=== PATIENT | female | born 1945 | race Caucasian/White ===

== ENCOUNTER 2016-04-10 21:10 | Inpatient (IN) | payer MEDICARE, MEDICAID ==
[~2016-04-10] VITALS: Ht 167.6 cm; Wt 57.6 kg
[~2016-04-10 21:10] MED LIST: *MAYHAVE; /ADVA50050; /ALEN70TA; /PANT40TA; /QUIN20TA; ACET500C; ASPEC81 PO; ASPI325T; ASPIRIN; ATROVENT0.02%; COLA100C2; FERROUS325 PO; GEMF600T; GLUC10TA3; GLUC500T; IBUP800T; K-TA10TA; LACT10SO8; LASI40TA; LASI80TA; LEVA750T; LEVO25TABR; LEVO2TA; NICO21DI4; OSELTAMIVIR; PLAV75TA2; PRED10TA2; PRED20TA; PRED50TA; PROV90AE; SYNT50TA; SYNTHRO175 PO; SYNTHROID PO; TAMIFLU; THERGRAN; WELL75TA; XOPE1.252; ZOCO20TA
[2016-04-10] MEDS ORDERED: ALBUTEROL SULFATE 2.5 MG/0.5 ML INH NEB SOLN As Ordered ONE (21:56)
[2016-04-10] MEDS ORDERED: IPRATROPIUM 0.5MG/ALBUTEROL 2.5MG INH SOL UD 3ML (DUONEB)(J7620) As Ordered ONE (21:56)
[2016-04-10 22:01] LABS: BASO # 0.1 K/mm3 (0.0-0.2); BASO % 1.3 % (0.0-1.0); EOS % 0.2 % (0.0-3.0); LARGE UNSTAINED CELL # 0.2 K/mm3 (0.0-0.4); LARGE UNSTAINED CELL % 3.3 % (0.0-4.0); LYMPH # 1.7 K/mm3 (1.5-4.5); LYMPH % 28.5 % (24.0-44.0); MEAN CORPUSCULAR HEMOGLOBIN 29.1 pg (27.0-33.0); MEAN CORPUSCULAR HGB CONC 32.8 g/dl (32.0-36.5); MEAN CORPUSCULAR VOLUME 88.6 fl (80.0-96.0); MONO # 0.4 K/mm3 (0.0-0.8); MONO % 7.7 % (0.0-5.0); NEUTROPHILS # 3.2 K/mm3 (1.8-7.7); PLATELET COUNT, AUTOMATED 191 k/mm3 (150-450); RED CELL DISTRIBUTION WIDTH 13.6 % (11.5-14.5); WHITE BLOOD COUNT 5.3 K/mm3 (4.0-10.0)
[2016-04-10 22:10] LABS: CALCIUM LEVEL 8.6 MG/DL (8.8-10.2); CREATININE FOR GFR 1.44 MG/DL (0.55-1.02)
[2016-04-10] MEDS ORDERED: CEFUROXIME INJ 750 MG VIAL (J0697) As Ordered ONE (22:55)
[2016-04-10] MEDS ORDERED: AZITHROMYCIN INJ 500MG VIAL (J0456) As Ordered ONE (23:23)
--- NOTE | 2016-04-11 00:14 | HPEPDOC ---
General Date of Admission 04/11/2016 Chief Complaint The patient is a 71-year-old female admitted with a reason for visit of Fever, Diff Breathing. Source: Patient, Old records Exam Limitations: No limitations Severity: Moderate History of Present Illness 68-year-old female with past medical history of obesity, diabetes, heart failure , COPD, hypothyroidism, multiple lung nodules, osteoarthritis, osteopenia, depression, anxiety, dementia, vitamin D and B12 deficiency presented with SOB with productive cough for 3 days duration. Patient was also having subjective chills as well as progressively getting worse with productive cough with yellow sputum. No blood in the sputum. Patient did have a cold like symptoms with sore throat, joint pain, as well as runny nose. No sick contacts and no recent travel. No fever until arriving to the ED where she was found to have a temperature of 104 patient also desaturated at 91 % on room air and on 2 L oxygen is atenolol. Patient's cough has increased after DuoNeb therapy however breathing is improved. denies Chest pain or palpitation. her lactate is elevated but does not meet SIRS criteria. Home Medications Scheduled Alendronate Sodium (Fosamax) 70 Mg Tab 70 MG PO 1XWK (Reported) Aspirin (Aspirin EC) 81 Mg Tab 81 MG PO DAILY (Reported) Cholecalciferol (Vitamin D) 400 Unit Cap 400 UNIT PO DAILY (Reported) Citalopram Hydrobromide (Citalopram Hydrobromide) 20 Mg Tab 20 MG PO QHS ( Reported) Clopidogrel Bisulfate (Plavix) 75 Mg Tab 75 MG PO DAILY (Reported) Cyanocobalamin (Vitamin B-12) 1,000 Mcg Tab 1,000 MCG PO DAILY (Reported) Docusate Sodium (Colace) 100 Mg Cap 100 MG PO BID (Reported) Donepezil Hcl (Donepezil HCl) 10 Mg Tab 10 MG PO QHS (Reported) Furosemide (Furosemide) 40 Mg Tab 40 MG PO DAILY (Reported) Levothyroxine Sodium (Synthroid) 175 Mcg Tab 175 MCG PO QAM (Reported) Loratadine (Loratadine) 10 Mg Tab 10 MG PO DAILY (Reported) Memantine Hydrochloride (Namenda Xr) 28 Mg Cap 28 MG PO DAILY (Reported) Metformin Hydrochloride (Metformin HCl) 500 Mg Tab 500 MG PO DAILY (Reported) With Breakfast Multivitamins *[facility]OCK[facility]* (Thera M Plus *[facility]OCK[facility]*) 1 Tab Tab 1 TAB PO DAILY (Reported) Quinapril Hcl (Quinapril HCl) 20 Mg Tab 20 MG PO DAILY (Reported) Simvastatin - High Dose (Simvastatin) 80 Mg Tab 80 MG PO QHS (Reported) Scheduled PRN Ipratropium [place] (Atrovent Hfa) 17 Mcg/Act Aer 17 MCG INH Q6H PRN PRN SOB/ WHEEZING (Reported) Allergies Coded Allergies: No Known Allergies (Verified Allergy, Unknown, 02/12/08) Past Medical History Medical History obesity, diabetes, heart failure, COPD, hypothyroidism, multiple lung nodules, osteoarthritis, osteopenia, depression, anxiety, dementia, vitamin D and B12 deficiency resume Surgical History hernia repair hysterectomy Social History * Smoker: former Smoker Alcohol: denies Drugs: denies Recent Travel/Sick Contacts: Denies: Recent sick contacts, Recent travel Psychosocial History: No pertinent psych hx Review of Symptoms Constitutional: Reports: Chills, Fatigue, Fever, Malaise, Weakness, Denies: Lethargy, Night Sweats, Other, Weight Loss Eyes: Denies: Conjunctivae inflammation, Eyelid inflammation, Other, Pain, Redness, Vision change ENT: Denies: Dysphagia, Ear Pain, Epistaxis, Head Aches, Other Symptoms, Post Nasal Drip, Sinus Congestion, Sore Throat Skin: Denies: Breakdown, Bruising, Dry, Itching, Jaundice, Lesions, Nail Changes, Other, Rash Pulmonary: Reports: Cough, Dyspnea Cardiovascular: Denies: Chest Pain, Edema, Lt Headedness, Orthopnea, Other Symptoms, Palpitations, Paroxysmal Noc. Dyspnea Gastrointestinal: Denies: Abdominal Pain, Constipation, Diarrhea, Hematochezia , Melena, Nausea, Other Symptoms, Vomiting Genitourinary: Denies: Dysuria, Frequency, Hematuria, Incontinence, Other Symptoms, Retention Endocrine: Denies: Cold Intolerance, Heat Intolerance, Other Endocrine Sx, Polydipsia, Polyphagia, Polyuria Physical Examination Eye Exam: Negative: Conjunctiva & lids normal, EOMI, Other Eye Symptoms, PERRLA , Ptosis, Sclera icteric ENT Exam: Negative: Atraumatic, Ext Auditory Canal Nml, Mucous membr. moist/ pink, Nares Patent, Other ENT, Pharyngeal Edema, Pharynx Normal, Pinna Normal, Tongue Midline, Tympanic Membranes Normal Neck Exam: Negative: +2 carotid pulse wo bruit, JVD, Lymphadenopathy, Other, Supple, thyromegaly Chest Exam: Positive: Rhonchi, Wheezing Heart Exam: Negative: Bradycardic, Gallops, Irregular Rhythm, Murmurs, Normal S1, Normal S2, Other, Rate Normal, Regular Rhythm, Rubs, Tachycardic Telemetry: Negative: AV Block, Asystole, Atrial fibrillation, Bradycardia, No significant arrhythmia, Other Telemetry:, PACs, PVCs, Pause, SV Tach, Sinus, Tachycardia Abdomen Exam: Negative: BS Hyperactive, BS Hypoactive, Hepatospenomegaly, Hernia, Mass, Normal bowel sounds, Other, Soft, Tenderness Extremity Exam: Negative: Clubbing, Cyanosis, Edema, Normal pulses, Other, Swelling, Tenderness Vital Signs BP: 196/75 p 108 t 98.1 r 16 Laboratory Data Labs 24H Laboratory Tests 2 04/10/16 21:12: Anion Gap 9, White Blood Count 5.3, Red Blood Count 4.08, Hemoglobin 11.9L, Hematocrit 36.1, Mean Corpuscular Volume 88.6, Mean Corpuscular Hemoglobin 29.1 , Mean Corpuscular Hemoglobin Concent 32.8, Red Cell Distribution Width 13.6, Platelet Count 191, Neutrophils (%) (Auto) 59.0, Lymphocytes (%) (Auto) 28.5, Monocytes (%) (Auto) 7.7H, Eosinophils (%) (Auto) 0.2, Basophils (%) (Auto) 1.3H , Neutrophils # (Auto) 3.2, Lymphocytes # (Auto) 1.7, Monocytes # (Auto) 0.4, Eosinophils # (Auto) 0.0, Basophils # (Auto) 0.1, Blood Urea Nitrogen 33H, Creatinine 1.44H, Sodium Level 138, Potassium Level 4.0, Chloride Level 105, Carbon Dioxide Level 24, Calcium Level 8.6L, Glomerular Filtration Rate 38.0L, Lactic Acid Level 3.5*H, Large Unclassified Cells # 0.2, Large Unclassified Cells % 3.3 CBC/BMP Laboratory Tests 04/10/16 21:12 Calcium Level 8.6 L, Red Blood Count 4.08, Mean Corpuscular Volume 88.6, Mean Corpuscular Hemoglobin 29.1, Mean Corpuscular Hemoglobin Concent 32.8, Red Cell Distribution Width 13.6, Neutrophils (%) (Auto) 59.0, Lymphocytes (%) (Auto) 28.5, Monocytes (%) (Auto) 7.7 H, Eosinophils (%) (Auto) 0.2, Basophils (%) ( Auto) 1.3 H, Neutrophils # (Auto) 3.2, Lymphocytes # (Auto) 1.7, Monocytes # ( Auto) 0.4, Eosinophils # (Auto) 0.0, Basophils # (Auto) 0.1 Microbiology Microbiology 04/10/16 Blood Culture, Received Pending 04/10/16 Blood Culture, Received Pending 04/10/16 Influenza Virus Type A Antigen - Final, Complete 04/10/16 Influenza Virus Type B Antigen - Final, Complete Plan / VTE VTE Prophylaxis Ordered?: Yes Plan Plan 68-year-old female with past medical history of obesity, diabetes, heart failure , COPD, hypothyroidism, multiple lung nodules, osteoarthritis, osteopenia, depression, anxiety, dementia, vitamin D and B12 deficiency presented with SOB with productive cough for 3 days duration. community acquired PNA and COPD exacerbation: - pt will be started on rocephin, azithomycin and DUONEB Q6H - blood culture, sputum culture, legionella antigen - No need for steroids Oxygen to keep surgeries and 100% Check lactic tomorrow morning Monitor CBC and CMP. Congestive heart failure Echo July 2007 shows EF of 65%. X-ray also shows pulmonary was congestion, Lasix will be switched to IV 40 daily. Recheck echo tomorrow Continue with quinipril 20 mg once a day. Consider beta emma upon discharge. Diabetes hoold Metformin for now Check A1c tomorrow, if blood sugars and A1c uncontrolled started her on insulin sliding scale. Due to prophylaxis on heparin subcutaneous. FROYLAN SERNA MD Apr 11, 2016 00:14
[2016-04-11] MEDS ORDERED: LORA10TA2 PO (00:27)
[2016-04-11] MEDS ORDERED: FURO40TA2 PO (00:27)
[2016-04-11] MEDS ORDERED: NAME28CA PO (00:27)
[2016-04-11] MEDS ORDERED: SYNT175T2 PO (00:27)
[2016-04-11] MEDS ORDERED: ATRO0.063 INH (00:27)
[2016-04-11] MEDS ORDERED: SIMV80TA PO (00:27)
[2016-04-11] MEDS ORDERED: METF500T PO (00:27)
[2016-04-11] MEDS ORDERED: VITMTA PO (00:27)
[2016-04-11] MEDS ORDERED: VITA400C29 PO (00:27)
[2016-04-11] MEDS ORDERED: COLA100C PO (00:27)
[2016-04-11] MEDS ORDERED: FOSA70TA PO (00:27)
[2016-04-11] MEDS ORDERED: DONETAB6 PO (00:27)
[2016-04-11] MEDS ORDERED: QUIN20TA7 PO (00:27)
[2016-04-11] MEDS ORDERED: PLAV75TA PO (00:27)
[2016-04-11] MEDS ORDERED: CITA20TA4 PO (00:27)
[2016-04-11] MEDS ORDERED: ASPI81TA13 PO (00:27)
[2016-04-11] MEDS ORDERED: VITA10002 PO (00:27)
[2016-04-11] MEDS ORDERED: cefTRIAXone SOD 1 GM in D5W MINI-BAG PLUS 50 ML IV SCH (01:00)
[2016-04-11] MEDS ORDERED: LEVALBUTEROL 1.25 MG/0.5 ML CONCENTRATE NEB As Ordered ONE (01:01)
[2016-04-11] MEDS ORDERED: dexameTHASONE 4 MG/ML 1ML VIAL (J1100) As Ordered ONE (01:02)
[2016-04-11] MEDS ORDERED: cefTRIAXone SOD 1 GM VIAL (J0696) IM SCH (01:30)
[2016-04-11] MEDS ORDERED: ACETAMINOPHEN TAB 650MG DOSE (2X325MG) PO PRN (01:30)
[2016-04-11] MEDS ORDERED: IPRATROPIUM HFA INHALER 12.9 GRAMS (ATROVENT HFA) INH PRN (02:30)
--- NOTE | 2016-04-11 02:43 | EDDOCDS ---
Nurse's Notes [facility] Name: Patricia Sofia Age: 71 yrs Sex: Female : 1945 Arrival Date: 04/10/2016 Time: 21:10 Bed 5 Private MD: Cristian Man A. Diagnosis: Pneumonia, unspecified organism Presentation: 04/10 21:14 Presenting complaint: caregiver reports that patient has started with symptoms on jmb late afternoon with chills evening. Call placed to pcp, informed to allow to go for believing to be a bug. Breathing difficulty started yesterday afternoon with today getting worse. Adult Sepsis Screening: Patient's respiratory rate is less than 22. Systolic blood pressure is greater than 100. Patient has a qSOFA score of 0- Negative Sepsis Screen. Suicide/Homicide risk assessment- the patient denies having any suicidal and/or homicidal ideations and does not present with any other emotional, behavioral or mental health complaints. Status: Patient is not a radiology equipment servicer or dependent. Transition of care: patient was sent by via [facility]. 21:14 Acuity: SARY Level 3 [facility] 21:14 Method Of Arrival: Wheelchair [facility] Triage Assessment: 21:23 General: Appears uncomfortable, Behavior is appropriate for age. Pain: Denies pain. [facility] Neurological: Level of Consciousness is awake, alert, obeys commands. Respiratory: Onset: The symptoms/episode began/occurred gradually, Airway is patent Respiratory effort is labored, Respiratory pattern is regular. Derm: Skin is pink, warm & dry. Musculoskeletal: Range of motion intact in all extremities. Historical: - Allergies: No known drug Allergies; - Home Meds: 1. levothyroxine 175 mcg Oral tab 1 tab once daily 2. Vitamin B-12 1,000 mcg Oral tab daily 3. multivitamin Oral tab 4. Plavix 75 mg Oral tab 1 tab once daily 5. quinapril 20 mg Oral tab 1 tab once daily 6. Vitamin D3 400 unit oral tab 7. aspirin 81 mg Oral TbEC 1 tab once daily 8. furosemide 40 mg Oral tab 1 tab once daily 9. metformin 500 mg Oral Tb24 1 tab once daily 10. docusate sodium 100 mg Oral cap 1 cap 2 times per day 11. loratadine 10 mg Oral TbDL 1 tab once daily 12. simvastatin 80 mg Oral tab daily 13. Aricept 10 mg Oral tab 1 tab once daily 14. citalopram 20 mg Oral tab 1 tab once daily 15. Fosamax 70 mg Oral tab 1 tab once wkly 16. Atrovent 18 mcg/actuation Inhl aero as needed - PMHx: Diabetes - NIDDM: controlled; CHF; COPD; Hypothyroidism; multiple lung nodules; hx monoclonal gammopathy; OA; osteopenia; Depression; Anxiety; colonic polyps; copnstipation; degenerative dementia; vitamin d deficiency; vitamin b 12 deficiency; - PSHx: hernia repair; Hysterectomy; - Social history: Smoking status: Patient states former smoker of tobacco. No barriers to communication noted, The patient speaks fluent Latvian, Speaks appropriately for age. - Family history: Not pertinent. - : The pt / caregiver states he / she is not on anticoagulants. Home medication list is obtained from the facility JUN. - Exposure Risk Screening:: None identified. Screenin/01 01:50 Screening information is obtained from the patient. Fall risk: No risks identified. af2 Assistance ADL's: requires no assistance with activities of daily living. Abuse/DV Screen: The patient / caregiver reports he/she is: not in a situation that causes fear, pain or injury. Nutritional screening: No deficits noted. Advance Directives: Currently, there is no health care proxy. home support is adequate. Assessment: 04/10 21:32 General: Appears in no apparent distress, Behavior is appropriate for age, cooperative. kas2 Pain: Denies pain. Neurological: Level of Consciousness is awake, alert, obeys commands, Speech is normal, Facial symmetry appears normal. Cardiovascular: Capillary refill < 3 seconds Heart tones S1 S2 present Rhythm is sinus rhythm No ectopy. Respiratory: Airway is patent Respiratory effort is even, labored, Breath sounds with wheezes expiratory bilaterally. Reports shortness of breath cough that is productive, clear mucus production labored breathing. Derm: Skin is pink, warm & dry. 21:58 Reassessment: Patient appears in no apparent distress at this time. Cardiovascular: nn1 Edema is absent. Pulses are all present. Rhythm is sinus rhythm. Derm: Skin is pink, warm & dry. 23:04 General: Appears in no apparent distress, comfortable, Behavior is appropriate for age, nn1 cooperative. Respiratory: Airway is patent Respiratory effort is even. Derm: Skin is pink, warm & dry. 04/11 00:09 General: Appears in no apparent distress, comfortable, Behavior is appropriate for age, nn1 cooperative, Patient not coughing at this time, comfortable. Transferring care of patient to FILIPPO Hunt, . 00:37 General: assumed care of pt at this time. pt is without complaints.. Cardiovascular: af2 Rhythm is sinus rhythm No ectopy. Respiratory: Airway is patent Respiratory effort is even, labored, Breath sounds with crackles expiratory bilaterally. Breath sounds with wheezes expiratory bilaterally. Reports shortness of breath cough that is labored breathing. Derm: Skin is pink, warm & dry. 01:11 General: Admit nurse at bedside with pt, family remains at bedside. rr even and af2 unlabored. . Vital Signs: 04/10 21:11 BP 196 / 75; Pulse 108; Resp 16 S; Temp 98.9(O); Pulse Ox 91% on R/A; Weight 80.74 kg gr2 (R); Height 5 ft. 6 in. (167.64 cm) (R); Pain 4/10; 21:21 BP 154 / 63 (auto/); nn1 21:21 Pulse 100 MON; Pulse Ox 89% ; nn1 21:33 Pulse 82 MON; Pulse Ox 94% ; nn1 21:34 BP 144 / 60 (auto/); nn1 21:36 BP 128 / 60 (auto/); nn1 21:36 Pulse 84 MON; Pulse Ox 94% ; nn1 21:51 BP 129 / 66 (auto/); nn1 21:51 Pulse 80 MON; Pulse Ox 95% ; nn1 22:06 BP 121 / 58 (auto/); nn1 22:06 Pulse 88 MON; Pulse Ox 96% ; nn1 22:21 BP 124 / 59 (auto/); nn1 22:21 Pulse 96 MON; Pulse Ox 93% ; nn1 22:36 BP 128 / 57 (auto/); nn1 22:36 Pulse 84 MON; Pulse Ox 93% ; nn1 04/11 02:41 BP 110 / 56; ka4 04/10 21:11 Body Mass Index 28.73 (80.74 kg, 167.64 cm) gr2 Vitals: 04/10 21:11 Log In Time: April 10, 2016 at 21:11. RN notified that patient meets Red Flag gr2 criteria. ED Course: 21:10 Patient visited by Lawanda Yousif. gr2 21:10 Patient moved to Waiting gr2 21:11 Cristian Man is Private Physician. gr2 21:16 Triage Initiated jmb 21:23 Patient visited by Lawanda Yousif. gr2 21:23 Patient moved to 5 sls1 21:24 Ирина Rojas DO is PHCP. bs6 21:24 Thong Valerio DO is Attending Physician. bs6 21:27 Patient visited by Ирина Rojas DO. bs6 21:28 Patient visited by Ирина Rojas DO. bs6 21:34 Inserted saline lock: 20 gauge in left antecubital area and blood collected. The kas2 patient tolerated the procedure well. O2 via nasal cannula \T\ 3L/min. 21:36 Patient visited by Margaret Washington PCA. rs6 21:36 EKG done. (by ED staff). Reviewed by Ирина Rojas DO. rs6 21:49 Lactic Acid (Retana tube on ice) Sent. ms18 21:49 -Blood Culture Sent. ms18 21:49 Basic Metabolic Profile Sent. ms18 21:49 CBC with Diff Sent. ms18 21:58 -Influenza A&B Rapid Antigen - Nose Sent. nn1 22:13 [facility] [place] Payment Agreement was scanned into [employer] and attached to record. gb 22:16 Notified attending ED physician of Critical lab value. sls1 22:17 Patient name changed from Patricia\S\\S\[place]\S\ to Patricia\S\M\S\[place]. EDMS 22:29 Patient visited by Stanley Brito RN. nn1 23:11 Patient visited by Stanley Brito RN. nn1 23:24 Terrell Valencia MD is Hospitalizing Provider. bs6 04/11 00:38 Patient visited by Marilee Payne RN. af2 01:12 Patient visited by Marilee Payne RN. af2 01:51 The patient / caregiver is instructed regarding the plan of care and ED course. Patient af2 has correct armband on for positive identification. Placed in gown. 01:51 No procedures done that require assistance. af2 01:53 Patient visited by Marilee Payne RN. af2 02:41 Patient visited by Shantel Sheehan LPN. ka4 Administered Medications: 04/10 22:00 Drug: Albuterol-Ipratropium 3 ml [ipratropium-albuterol 0.5 mg-3 mg(2.5 mg base)/3 mL jc3 nebulization soln (3 mL)] Route: Inhalation; 22:00 Drug: Albuterol 5 mg [albuterol sulfate 2.5 mg/0.5 mL solution for nebulization (1 mL)] jc3 Route: Nebulizer; 22:35 Drug: NS 0.9% 500 ml [sodium chloride 0.9 % intravenous solution] Route: IV; Rate: nn1 bolus; Site: left antecubital; 23:03 Drug: cefUROXime 1.5 grams [cefuroxime sodium 750 mg solution for injection] Route: IV; nn1 Rate: calculated rate; Infused Over: 30 mins; Site: left antecubital; 04/11 00:09 Drug: azithromycin 500 mg [azithromycin 500 mg intravenous solution] Route: IVPB; nn1 Infused Over: 1 hrs; Site: left antecubital; 01:03 Drug: Levalbuterol 1.25 mg [levalbuterol 1.25 mg/0.5 mL solution for nebulization (0.5 jc3 mL)] Route: Nebulizer; 01:07 Drug: Dexamethasone 6 mg [dexamethasone 4 mg/mL injection solution] Route: IV; Rate: af2 bolus; Site: left antecubital; RT: 04/10 22:00 Initial Med Neb Given as ordered. O2 via nasal cannula \T\ 3L/min. Respiratory: Breath jc3 sounds are diminished bilaterally. Breath sounds with wheezes in right upper lobe and right middle lobe at inspiration. 22:07 Respiratory: Breath sounds are diminished Breath sounds with wheezes bilaterally. jc3 04/11 01:03 Subsequent Med Neb Given as ordered. Respiratory: Breath sounds are diminished Breath jc3 sounds with wheezes bilaterally. at expiration. Order Results: Lab Order: Basic Metabolic Profile; SPEC'M 04/10/16 21:12 Test: GLUCOSE, FASTING; Value: 218; Range: 83-110; Abnormal: Above high normal; Units: MG/DL; Status: F Test: BLOOD UREA NITROGEN; Value: 33; Range: 7-18; Abnormal: Above high normal; Units: MG/DL; Status: F Test: CREATININE FOR GFR; Value: 1.44; Range: 0.55-1.02; Abnormal: Above high normal; Units: MG/DL; Status: F Test: GLOMERULAR FILTRATION RATE; Value: 38.0; Range: >39; Abnormal: Below low normal; Status: F Test: SODIUM LEVEL; Value: 138; Range: 136-145; Units: MEQ/L; Status: F Test: POTASSIUM SERUM; Value: 4.0; Range: 3.5-5.1; Units: MEQ/L; Status: F Test: CHLORIDE LEVEL; Value: 105; Range: 98-107; Units: MEQ/L; Status: F Test: CARBON DIOXIDE LEVEL; Value: 24; Range: 21-32; Units: MEQ/L; Status: F Test: ANION GAP; Value: 9; Range: 8-16; Units: MEQ/L; Status: F Test: CALCIUM LEVEL; Value: 8.6; Range: 8.8-10.2; Abnormal: Below low normal; Units: MG/DL; Status: F Test Note: ; Units are mL/min/1.73 m2 Chronic Kidney Disease Staging per NKF: Stage I & II GFR >=60 Normal to Mildly Decreased Stage III GFR 30-59 Moderately Decreased Stage IV GFR 15-29 Severely Decreased Stage V GFR <15 Very Little GFR Left ESRD GFR <15 on POLICE OFF[employer]ER CRIME PREVENTION Lab Order: CBC with Diff; SPEC'M 04/10/16 21:12 Test: WHITE BLOOD COUNT; Value: 5.3; Range: 4.0-10.0; Units: K/mm3; Status: F Test: RED BLOOD COUNT; Value: 4.08; Range: 4.00-5.40; Units: M/mm3; Status: F Test: HEMOGLOBIN; Value: 11.9; Range: 12.0-16.0; Abnormal: Below low normal; Units: g/dl; Status: F Test: HEMATOCRIT; Value: 36.1; Range: 36.0-47.0; Units: %; Status: F Test: MEAN CORPUSCULAR VOLUME; Value: 88.6; Range: 80.0-96.0; Units: fl; Status: F Test: MEAN CORPUSCULAR HEMOGLOBIN; Value: 29.1; Range: 27.0-33.0; Units: pg; Status: F Test: MEAN CORPUSCULAR HGB CONC; Value: 32.8; Range: 32.0-36.5; Units: g/dl; Status: F Test: RED CELL DISTRIBUTION WIDTH; Value: 13.6; Range: 11.5-14.5; Units: %; Status: F Test: PLATELET COUNT, AUTOMATED; Value: 191; Range: 150-450; Units: k/mm3; Status: F Test: NEUTROPHILS %; Value: 59.0; Range: 36.0-66.0; Units: %; Status: F Test: LYMPH %; Value: 28.5; Range: 24.0-44.0; Units: %; Status: F Test: MONO %; Value: 7.7; Range: 0.0-5.0; Abnormal: Above high normal; Units: %; Status: F Test: EOS %; Value: 0.2; Range: 0.0-3.0; Units: %; Status: F Test: BASO %; Value: 1.3; Range: 0.0-1.0; Abnormal: Above high normal; Units: %; Status: F Test: LARGE UNSTAINED CELL %; Value: 3.3; Range: 0.0-4.0; Units: %; Status: F Test: NEUTROPHILS #; Value: 3.2; Range: 1.8-7.7; Units: K/mm3; Status: F Test: LYMPH #; Value: 1.7; Range: 1.5-4.5; Units: K/mm3; Status: F Test: MONO #; Value: 0.4; Range: 0.0-0.8; Units: K/mm3; Status: F Test: EOS #; Value: 0.0; Range: 0.0-0.50; Units: K/mm3; Status: F Test: BASO #; Value: 0.1; Range: 0.0-0.2; Units: K/mm3; Status: F Test: LARGE UNSTAINED CELL #; Value: 0.2; Range: 0.0-0.4; Units: K/mm3; Status: F Lab Order: Lactic Acid (Retana tube on ice); SPEC'M 04/10/16 21:12 Test: LACTIC ACID LEVEL, LACTATE; Value: 3.5; Range: 0.4-2.0; Abnormal: Above upper panic limits; Units: MMOL/L; Status: F Lab Order: -Influenza A&B Rapid Antigen - Nose; SPEC'M 04/10/16 21:54 Test: INFLUENZA A RAPID SCR by ICA; Value: INFLUENZA A RESULTS NEGATIVE; Status: F Test: INFLUENZA A RAPID SCR by ICA; Value: Comments:; Status: F Test: INFLUENZA B RAPID SCR by ICA; Value: INFLUENZA B RESULTS NEGATIVE; Status: F Test Note: ; The Influenza test is a direct rapid immunoassay for the qualitative detection of Influenza viral antigen. Cell culture (Viral Culture) testing should be considered to confirm NEGATIVE results and to assist in detecting other viruses that can provide similar clinical symptoms. Please contact the lab within 24 hours ([phone]) if confirmatory testing is desired. Outcome: 04/10 23:26 Decision to Hospitalize by Provider. bs6 04/11 01:51 Discharge Assessment: patient administered narcotics - no. The following High Risk af2 Discharge criteria are identified: None. Admitted to Med/Surg accompanied by tech, via stretcher, with chart. Condition: stable. No special radiology studies were completed. Property :Personal belongings accompany Pt. 02:43 Patient left the ED. af2 Signatures: Dispatcher [employer] EDFL Erika Whitaker, Reg Reg Kvein Millan jc3 Linette Magaña, RN RN sls1 Lawanda Yousif gr2 Broderick NesbittRN RN Shantel Russo,INTERNIST INTERNIST ka4 Ирина Rojas, DO bs6 Arabella DavenportRN RN ms18 Margaret Washington, [employer] O[employer]ATIONS COORDINATOR rs6 Marilee PayneRN RN af2 Stanley BritoRN RN nn1 Tesha DavenportRN RN kas2 Corrections: (The following items were deleted from the chart) 04/10 22:07 22:00 O2 via nasal cannula \T\ 2L/min jc3 jc3 MTDD
--- NOTE | 2016-04-11 02:43 | EDDOCDS ---
Physician Documentation [facility] Name: Patricia Sofia Age: 71 yrs Sex: Female : 1945 Arrival Date: 04/10/2016 Time: 21:10 Bed 5 Private MD: Cristian Man A. Disposition: 04/10/16 23:26 Hospitalization ordered by Terrell Valencia for Inpatient Admission. Preliminary diagnosis is Pneumonia, unspecified organism. - Bed requested for 4 [place]. - Status is Inpatient Admission. af2 - Condition is Stable. - Problem is new. - Symptoms have improved. Historical: - Allergies: No known drug Allergies; - Home Meds: 1. levothyroxine 175 mcg Oral tab 1 tab once daily 2. Vitamin B-12 1,000 mcg Oral tab daily 3. multivitamin Oral tab 4. Plavix 75 mg Oral tab 1 tab once daily 5. quinapril 20 mg Oral tab 1 tab once daily 6. Vitamin D3 400 unit oral tab 7. aspirin 81 mg Oral TbEC 1 tab once daily 8. furosemide 40 mg Oral tab 1 tab once daily 9. metformin 500 mg Oral Tb24 1 tab once daily 10. docusate sodium 100 mg Oral cap 1 cap 2 times per day 11. loratadine 10 mg Oral TbDL 1 tab once daily 12. simvastatin 80 mg Oral tab daily 13. Aricept 10 mg Oral tab 1 tab once daily 14. citalopram 20 mg Oral tab 1 tab once daily 15. Fosamax 70 mg Oral tab 1 tab once wkly 16. Atrovent 18 mcg/actuation Inhl aero as needed - PMHx: Diabetes - NIDDM: controlled; CHF; COPD; Hypothyroidism; multiple lung nodules; hx monoclonal gammopathy; OA; osteopenia; Depression; Anxiety; colonic polyps; copnstipation; degenerative dementia; vitamin d deficiency; vitamin b 12 deficiency; - PSHx: hernia repair; Hysterectomy; - Social history: Smoking status: Patient states former smoker of tobacco. No barriers to communication noted, The patient speaks fluent Wolof, Speaks appropriately for age. - Family history: Not pertinent. - : The pt / caregiver states he / she is not on anticoagulants. Home medication list is obtained from the facility JUN. - Exposure Risk Screening:: None identified. Vital Signs: 04/10 21:11 BP 196 / 75; Pulse 108; Resp 16 S; Temp 98.9(O); Pulse Ox 91% on R/A; Weight 80.74 kg / gr2 178 lbs (R); Height 5 ft. 6 in. (167.64 cm) (R); Pain 4/10; 21:21 BP 154 / 63 (auto/); nn1 21:21 Pulse 100 MON; Pulse Ox 89% ; nn1 21:33 Pulse 82 MON; Pulse Ox 94% ; nn1 21:34 BP 144 / 60 (auto/); nn1 21:36 BP 128 / 60 (auto/); nn1 21:36 Pulse 84 MON; Pulse Ox 94% ; nn1 21:51 BP 129 / 66 (auto/); nn1 21:51 Pulse 80 MON; Pulse Ox 95% ; nn1 22:06 BP 121 / 58 (auto/); nn1 22:06 Pulse 88 MON; Pulse Ox 96% ; nn1 22:21 BP 124 / 59 (auto/); nn1 22:21 Pulse 96 MON; Pulse Ox 93% ; nn1 22:36 BP 128 / 57 (auto/); nn1 22:36 Pulse 84 MON; Pulse Ox 93% ; nn1 04/11 02:41 BP 110 / 56; ka4 04/10 21:11 Body Mass Index 28.73 (80.74 kg, 167.64 cm) gr2 MDM: 04/10 21:25 ECG WITH READING ER PHYS+CARDIAG ordered. EDMS 21:47 -Blood Culture (Adults Only), peripheral from different site, or from device/port/PICC bs6 etc. if present ordered. 21:47 Call Respiratory ordered. bs6 21:47 Field Service Rep/Pulse Ox/q 15 min VS ordered. bs6 21:47 IV Saline Lock ordered. bs6 21:47 Oxygen at 4L/Min NC or Home dosage ordered. bs6 21:47 Rhythm Strip to chart ordered. bs6 21:47 Albuterol-Ipratropium 3 ml Inhalation once ordered. bs6 21:47 Albuterol 5 mg Nebulizer once ordered. bs6 21:48 Basic Metabolic Profile Ordered. EDMS 21:48 CBC with Diff Ordered. EDMS 21:48 Lactic Acid (Retana tube on ice) Ordered. EDMS 21:48 -Blood Culture Ordered. EDMS 21:48 -Influenza A&B Rapid Antigen - Nose Ordered. EDMS 21:49 Call Respiratory complete. ms18 21:54 -Blood Culture (Adults Only), peripheral from different site, or from device/port/PICC tmm1 etc. if present complete. 21:55 BLOOD CULTURES Ordered. EDMS 22:11 Financial registration complete. gb 22:13 [facility] Payment Agreement was scanned into [employer] and attached to record. gb 22:17 Basic Metabolic Profile Reviewed. cs11 22:17 CBC with Diff Reviewed. cs11 22:18 NS 0.9% 500 ml IV at bolus once ordered. bs6 22:20 BED REQUEST+ADM ordered. EDMS 22:44 Chest, 1 view Ordered. EDMS 22:50 cefUROXime 1.5 grams IV at calculated rate once over 30 mins; dilute in 50mL of NS or cs11 D5W ordered. 22:50 azithromycin 500 mg IVPB once over 1 hrs; dilute in 250mL of D5W or NS ordered. cs11 23:50 LACTIC ACID LEVEL, LACTATE Ordered. EDMS 23:50 CBC WITH DIFFERENTIAL Ordered. EDMS 23:50 BASIC METABOLIC PROFILE Ordered. EDMS 23:51 LEGIONELLA ANTIGEN URINE Ordered. EDMS 23:51 RESPIRATORY PANEL Ordered. EDMS 23:51 SPUTUM CULTURE AND GRAM STAIN Ordered. EDMS 0101 00:45 Dexamethasone 6 mg IV at bolus once ordered. cs11 00:45 Levalbuterol 1.25 mg Nebulizer once ordered. cs11 00:45 Call Respiratory ordered. cs11 00:45 Call Respiratory complete. rs6 01:26 2 GRAM SODIUM DIET ordered. EDMS 01:26 LOW FAT LOW CHOLESTEROL DIET ordered. EDMS 01:26 THYROID STIMULATING HORMONE Ordered. EDMS 01:27 URINALYSIS Ordered. EDMS 01:27 URINE CULTURE Ordered. EDMS 01:32 ECHOCARD,DOPPLER/COLOR FLOW ordered. EDMS 01:33 HEMOGLOBIN A1C Ordered. EDMS 01:35 Admission / Observation Status ordered. EDMS Administered Medications: 04/10 22:00 Drug: Albuterol-Ipratropium 3 ml [ipratropium-albuterol 0.5 mg-3 mg(2.5 mg base)/3 mL jc3 nebulization soln (3 mL)] Route: Inhalation; 22:00 Drug: Albuterol 5 mg [albuterol sulfate 2.5 mg/0.5 mL solution for nebulization (1 mL)] jc3 Route: Nebulizer; 22:35 Drug: NS 0.9% 500 ml [sodium chloride 0.9 % intravenous solution] Route: IV; Rate: nn1 bolus; Site: left antecubital; 23:03 Drug: cefUROXime 1.5 grams [cefuroxime sodium 750 mg solution for injection] Route: IV; nn1 Rate: calculated rate; Infused Over: 30 mins; Site: left antecubital; 04/11 00:09 Drug: azithromycin 500 mg [azithromycin 500 mg intravenous solution] Route: IVPB; nn1 Infused Over: 1 hrs; Site: left antecubital; 01:03 Drug: Levalbuterol 1.25 mg [levalbuterol 1.25 mg/0.5 mL solution for nebulization (0.5 jc3 mL)] Route: Nebulizer; 01:07 Drug: Dexamethasone 6 mg [dexamethasone 4 mg/mL injection solution] Route: IV; Rate: af2 bolus; Site: left antecubital; Signatures: Dispatcher [employer] EDMS Bindu Simpson, RN RN Erika Ballesteros, Reg Reg gb Thong Valerio, DO DO cs11 Omar Jeromesa, COMMUNITY SERVICE AIDE COMMUNITY SERVICE AIDE tmm1 Broderick NesbittRN RN Ирина Lord, DO DO bs6 Arabella Davenport RN RN ms18 Margaret Washington, COMMUNITY SERVICE AIDE COMMUNITY SERVICE AIDE rs6 Marilee Payne RN RN af2 Kevin Millan jc3 Stanley Brito RN nn1 The chart was reviewed and I authenticate all verbal orders and agree with the evaluation and treatment provided.Corrections: (The following items were deleted from the chart) 04/10 22:44 21:48 Chest, 2 view (PA\E\Lat)+XR ordered. EDMS EDMS 04/11 01:30 01:27 BLOOD CULTURES ordered. EDMS EDMS Attachments: 04/10 22:13 [facility] Payment Agreement gb MTDD
[2016-04-11 02:50] VITALS: BP 144/71
[2016-04-11] MEDS: IPRATROPIUM 0.5MG/ALBUTEROL 2.5MG INH SOL UD 3ML (DUONEB)(J7620) NEB SCH ×5 (04:00→23:34)
[2016-04-11] MEDS: HEPARIN SOD (PORCINE) 5000 UNITS/ML VIAL SC SCH ×3 (05:16→22:19)
[2016-04-11 05:57] LABS: CALCIUM LEVEL 8.1 MG/DL (8.8-10.2); CREATININE FOR GFR 1.17 MG/DL (0.55-1.02); GLOMERULAR FILTRATION RATE 48.3 (>39)
[2016-04-11 06:00] VITALS: BP 126/61
[2016-04-11] MEDS ORDERED: LEVOTHYROXINE 0.05 MG TAB (50 MCG) PO SCH (06:00)
[2016-04-11] MEDS ORDERED: LEVOTHYROXINE 0.125 MG TAB (125 MCG) PO SCH (06:00)
[2016-04-11 06:12] LABS: BASO % 0.3 % (0.0-1.0); EOS % 0.1 % (0.0-3.0); LARGE UNSTAINED CELL # 0.1 K/mm3 (0.0-0.4); LARGE UNSTAINED CELL % 3.3 % (0.0-4.0); LYMPH # 0.5 K/mm3 (1.5-4.5); LYMPH % 15.8 % (24.0-44.0); MEAN CORPUSCULAR HEMOGLOBIN 29.2 pg (27.0-33.0); MEAN CORPUSCULAR HGB CONC 32.5 g/dl (32.0-36.5); MEAN CORPUSCULAR VOLUME 89.9 fl (80.0-96.0); MONO # 0.2 K/mm3 (0.0-0.8); MONO % 4.5 % (0.0-5.0); NEUTROPHILS # 2.6 K/mm3 (1.8-7.7); PLATELET COUNT, AUTOMATED 149 k/mm3 (150-450); RED CELL DISTRIBUTION WIDTH 12.7 % (11.5-14.5); WHITE BLOOD COUNT 3.4 K/mm3 (4.0-10.0)
[2016-04-11 08:30] LABS: THYROXINE (T4) 10.6 UG/DL (4.5-12.0)
[2016-04-11 08:54] LABS: T UPTAKE 39 % (30-39)
[2016-04-11] MEDS ORDERED: FUROSEMIDE 40 MG TAB PO SCH (09:00)
[2016-04-11] MEDS: CYANOCOBALAMIN 500 MCG TAB PO SCH (09:00)
[2016-04-11] MEDS: DOCUSATE SODIUM 100 MG CAP PO SCH ×2 (09:00→20:34)
[2016-04-11] MEDS: MULTIVITAMINS/MINERALS THERAP 1 TAB PO SCH (09:00)
[2016-04-11] MEDS: CLOPIDOGREL 75 MG TAB PO SCH (09:00)
[2016-04-11] MEDS: LORATADINE 10 MG TAB PO SCH (09:00)
[2016-04-11] MEDS: NAMENDA 28 MG PO SCH (09:00)
[2016-04-11] MEDS: VITAMIN D (CHOLECALCIFEROL) 400 INTERNATIONAL UNITS TAB PO SCH (09:00)
[2016-04-11] MEDS: ADVAIR DISKUS 500/50 INH PWD INH SCH ×2 (09:00→19:22)
[2016-04-11] MEDS: QUINAPRIL 20 MG TAB PO SCH (09:00)
[2016-04-11] MEDS: ASPIRIN 81 MG ENTERIC TAB PO SCH (09:00)
[2016-04-11] MEDS ORDERED: FUROSEMIDE 40 MG/4 ML VIAL (J1940) IV SCH (09:00)
--- NOTE | 2016-04-11 09:21 | REP ---
Clinical: Shortness of breath. Comparison: 11/24/2012. Findings: Cardiomegaly is appreciated along with increased interstitial markings, indistinct pulmonary vasculature, cephalization and basilar opacities. Findings are most suggestive of pulmonary vascular congestion with interstitial edema. Differential diagnosis includes multifocal pneumonia. No pneumothorax. Skeletal structures intact; degenerative changes to the bilateral shoulders noted. Impression: Evidence to suggest pulmonary vascular congestion with interstitial edema. Signed by Joe Hughes MD 04/11/2016 09:13 A
--- NOTE | 2016-04-11 10:26 | ECGEPIP ---
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
[2016-04-11] MEDS: methylPREDNISolone INJ 125 MG/2 ML VIAL (J2930) IV SCH ×2 (10:42→22:19)
[2016-04-11 14:00] VITALS: BP 138/52
--- NOTE | 2016-04-11 15:13 | ECHO ---
DATE OF PROCEDURE: 04/11/2016 REFERRING PHYSICIAN: Dr. Penny Negro PATIENT LOCATION: Room 4204 REASON FOR THE ECHOCARDIOGRAM: Shortness of breath. 2D MEASUREMENT: IVS - 1.1 cm LV - 4.3 cm LVPW - 1.1 cm LA - 4.0 cm Aorta - 2. 5 cm RV - 3.3 cm IVC - 1.5 cm DOPPLER MEASUREMENTS: Peak velocity across the aortic valve - 2.1 m/s Mitral E - 1.5, Mitral A - 1.82 with a ratio of 0.84 Maximum tricuspid valve velocity 2.8 m/s 2D COMMENTS: 1. Normal left ventricular size, wall thickness and normal global left ventricular systolic function with LVEF estimated at 65 to 70%. 2. Borderline enlarged left atrium. The right atrium also appeared to be borderline enlarged. Normal right ventricle. There were findings consistent with right ventricular hypertrophy. Right ventricular systolic function appeared to be normal. 3. The atrial septum appeared to be normal without evidence of defect or shunt. 4. Normal aortic root. 5. Trace pericardial effusion noted posteriorly, no evidence for cardiac tamponade. 6. Mildly calcified aortic valve. 7. Normal mitral valve, tricuspid valve. The pulmonic valve and proximal pulmonary artery branches were not well visualized. 8. The inferior vena cava was normal in size, central venous pressure is most likely normal. Doppler detects mild tricuspid regurgitation. The calculated pulmonary artery systolic pressure varies between 30 to 40 mmHg. Abnormal relaxation pattern was noted across the mitral valve leaflet consistent with a grade 1 left ventricular diastolic dysfunction. IMPRESSION: 1. Normal global left ventricular systolic function. There are features of left ventricular diastolic dysfunction, grade 1. 2. Probably minimal aortic stenosis, no aortic regurgitation. The peak gradient across the aortic valve was 90 mmHg with a mean gradient of 11 mmHg and the aortic valve velocity as mentioned above was 2.2 m/s. 3. Mild tricuspid regurgitation with mild pulmonary hypertension. 4. Isolated borderline enlarged left atrium. 5. Trace pericardial effusion noted posteriorly.
--- NOTE | 2016-04-11 18:01 | IPN ---
DATE: 04/11/2016 The patient is seen and examined. The patient was admitted overnight. Reported her dyspnea and cough seems to be mildly improved. Denies any fevers or chills. Denies any chest pain, pressure or discomfort. Tolerating oral. VITAL SIGNS: Temperature 98.1, pulse 79, respirations 19, blood pressure 148/67, pulse oximetry 97% on 2 liters nasal cannula. LABORATORY DATA: WBC 3.4, hemoglobin and hematocrit 11/33.7, platelets 129. Sodium 140, potassium 4, chloride 106, bicarbonate 24, BUN 28, creatinine 1.17, lactic acid 1.5, A1/c 6, C-reactive protein 5.74. Respiratory panel positive for human metapneumovirus. Echo shows normal left ventricular size, wall thickness, and normal global left ventricular systolic function, ejection fraction of 65 to 70%, borderline enlargement of left atrium, right atrium also appeared to be borderline enlarged. Normal right ventricle. There are findings consistent with right ventricular hypertrophy, right ventricular systolic function appears to be normal. Mild pulmonary hypertension. Mild tricuspid regurgitation. PHYSICAL EXAMINATION: GENERAL: Patient is alert and oriented times three with some coughing. In no acute distress. HEENT: Normocephalic, atraumatic. PULMONARY: Bilateral rhonchi. Bilateral expiratory wheeze. CARDIAC: Regular rate and rhythm. Normal S1, S2. No murmurs detected. ABDOMEN: Soft, nontender, nondistended. EXTREMITIES: No edema in bilateral lower extremities. ASSESSMENT AND PLAN: This is a 71-year-old female patient with underlying medical history of obesity, congestive heart failure (CHF) with diastolic dysfunction, type 2 diabetes, hypothyroidism, multiple lung nodules, osteoarthritis, osteopenia, depression, anxiety, dementia, presented with shortness of breath and admitted for acute chronic obstructive pulmonary disease (COPD) exacerbation and community-acquired bacterial pneumonia. 1. Community acquired bacterial pneumonia and acute COPD exacerbation. X-ray appreciated. Azithromycin and Rocephin. Followup cultures. 2. Acute COPD exacerbation. Steroids, oxygen supplementation as needed. Nebulizer treatments. Taper steroid. Advair inhaler. 3. Coronary arterial disease. Continue aspirin and Plavix, statin. Monitor blood pressure. 4. History of congestive heart failure (CHF) with diastolic dysfunction. Echo is appreciated. Lasix 40 mg by mouth daily. The patient is currently euvolemic. 5. Hypothyroidism. TSH was depressed with relatively normal T4. Synthroid dose decreased, will need outpatient followup. 6. Dementia. Continue home medications. 7. Hypertension. Continue Ldmuccbxlpg-ijxopfmwbr-kvjpwd (MATILDA) inhibitor. Continue Lasix. Monitor blood pressure. 8. Deep vein thrombosis (DVT) prophylaxis. Heparin subcutaneously. DISPOSITION PLANNING: Pending clinical improvement. Lactic acidosis, improved.
[2016-04-11] MEDS: CitaloPRAM (CeleXA) 20 MG TAB PO SCH (20:34)
[2016-04-11] MEDS: SIMVASTATIN 40 MG TAB PO SCH (20:34)
[2016-04-11] MEDS: DONEPEZIL 5 MG TAB PO SCH (20:34)
[2016-04-11 21:42] VITALS: BP 130/58
[2016-04-11] MEDS: AZITHROMYCIN 500 MG, VIAL MATE ADAPTER 1 EACH in D5W 250 ML IV SCH (23:24)
[2016-04-12] MEDS: cefTRIAXone SOD 2 GM in D5W MINI-BAG PLUS 50 ML IV SCH (00:29)
[2016-04-12] MEDS ORDERED: cefTRIAXone SOD 2 GM in D5W MINI-BAG PLUS 50 ML IV SCH (01:00)
[2016-04-12 05:18] VITALS: BP 126/61
[2016-04-12] MEDS: HEPARIN SOD (PORCINE) 5000 UNITS/ML VIAL SC SCH ×3 (05:32→21:10)
[2016-04-12] MEDS: LEVOTHYROXINE 0.15 MG TAB (150 MCG) PO SCH (05:32)
[2016-04-12] MEDS ORDERED: LEVOTHYROXINE 0.137 MG TAB (137MCG) PO SCH (06:00)
[2016-04-12 06:18] LABS: MEAN CORPUSCULAR HEMOGLOBIN 29.1 pg (27.0-33.0); MEAN CORPUSCULAR HGB CONC 31.6 g/dl (32.0-36.5); MEAN CORPUSCULAR VOLUME 91.9 fl (80.0-96.0); RED CELL DISTRIBUTION WIDTH 12.6 % (11.5-14.5); WHITE BLOOD COUNT 4.5 K/mm3 (4.0-10.0)
[2016-04-12 06:29] LABS: CALCIUM LEVEL 8.8 MG/DL (8.8-10.2); CREATININE FOR GFR 1.21 MG/DL (0.55-1.02); GLOMERULAR FILTRATION RATE 46.4 (>39); MAGNESIUM LEVEL 2.2 MG/DL (1.8-2.4)
[2016-04-12] MEDS: ADVAIR DISKUS 500/50 INH PWD INH SCH ×2 (07:50→20:02)
[2016-04-12] MEDS: IPRATROPIUM 0.5MG/ALBUTEROL 2.5MG INH SOL UD 3ML (DUONEB)(J7620) NEB SCH ×6 (07:50→22:54)
[2016-04-12] MEDS: NAMENDA 28 MG PO SCH (09:39)
[2016-04-12] MEDS: MULTIVITAMINS/MINERALS THERAP 1 TAB PO SCH (09:40)
[2016-04-12] MEDS: ASPIRIN 81 MG ENTERIC TAB PO SCH (09:40)
[2016-04-12] MEDS: LORATADINE 10 MG TAB PO SCH (09:40)
[2016-04-12] MEDS: CLOPIDOGREL 75 MG TAB PO SCH (09:40)
[2016-04-12] MEDS: DOCUSATE SODIUM 100 MG CAP PO SCH ×2 (09:40→21:13)
[2016-04-12] MEDS: CYANOCOBALAMIN 500 MCG TAB PO SCH (09:44)
[2016-04-12] MEDS: VITAMIN D (CHOLECALCIFEROL) 400 INTERNATIONAL UNITS TAB PO SCH (09:44)
[2016-04-12] MEDS: methylPREDNISolone INJ 125 MG/2 ML VIAL (J2930) IV SCH (09:45)
[2016-04-12] MEDS ORDERED: GLUCOSE 4 GM CHEW TABLET PO PRN (10:15)
[2016-04-12] MEDS ORDERED: GLUCAGON FOR INJ 1 MG VIAL (J1610) SC PRN (10:15)
[2016-04-12] MEDS ORDERED: DEXTROSE 50% 50 ML SYRINGE IV PRN (10:15)
[2016-04-12] MEDS: HumaLOG INSULIN (NovoLOG) PER UNIT SC SCH ×3 (12:59→21:09)
--- NOTE | 2016-04-12 13:25 | IPN ---
DATE OF SERVICE: 04/12/2016 Patient seen and examined. No acute events overnight. Reported improved respiration. Reported improved cough, but continues to have mild cough. Denies any fevers or chills, chest pain, pressure, or discomfort. VITAL SIGNS: Temperature 97, pulse 66, respirations 18, blood pressure 126/61, pulse oximetry 96% on 3 liters nasal cannula. LABORATORY: WBC 4.5, hemoglobin and hematocrit (H and H) 10.3 and 32.4, platelets 162. Chemistry: Sodium 137, potassium 5, chloride 105, bicarbonate 24, BUN 32, creatinine 1.2. C-reactive protein 2.73. PHYSICAL EXAMINATION: GENERAL: Patient alert and oriented times three. No acute distress. Mild cough HEENT: Normocephalic, atraumatic. PULMONARY: Bilateral rhonchi. No significant wheeze. CARDIAC: Regular rate and rhythm. Normal S1, S2. No murmurs detected. ABDOMEN: Soft, nontender, nondistended. EXTREMITIES: No edema bilateral lower extremities. ASSESSMENT AND PLAN: This is a 71-year old female patient with underlying medical history of obesity, congestive heart failure with diastolic dysfunction, type 2 diabetes, hypothyroidism, multiple lung nodules, osteoarthritis, osteopenia, depression, anxiety, dementia, presented with shortness of breath, admitted for acute chronic obstructive pulmonary disease (COPD) exacerbation with secondary community-acquired bacterial pneumonia. PROBLEMS: 1. Acute chronic obstructive pulmonary disease (COPD) exacerbation secondary to bronchitis versus community-acquired bacterial pneumonia. Patient on Rocephin and azithromycin. Follow up cultures. X-rays appreciated. 2. Acute chronic obstructive pulmonary disease (COPD) exacerbation with hypoxia. Oxygen supplementation. Taper steroids as tolerated. Nebulizer treatments. Advair inhalers. 3. Coronary artery disease. Continue aspirin, Plavix, statin. Monitor blood pressure. 4. History of congestive heart failure with diastolic dysfunction. Echocardiogram appreciated. Patient currently euvolemic. Continue home dose of Lasix. 5. Hypothyroidism. Thyroid stimulating hormone (THS) was depressed with relatively normal T4. Synthroid dose has been decreased. Outpatient follow up not needed. 6. Diabetes with hyperglycemia secondary to steroids. Insulin per protocol. Follow up fingersticks. 7. Dementia. Continue home medications. 8. Hypertension. Angiotensin-converting enzyme (MATILDA) inhibitor on hold given elevated creatinine. Continue Lasix. Monitor blood pressure. 9. Deep venous thrombosis (DVT) prophylaxis. Heparin subcutaneously. DISPOSITION PLANNING: Pending clinical improvement. Patient passed physical therapy.
[2016-04-12 14:00] VITALS: BP 134/62
[2016-04-12] MEDS: SIMVASTATIN 40 MG TAB PO SCH (21:08)
[2016-04-12] MEDS: CitaloPRAM (CeleXA) 20 MG TAB PO SCH (21:09)
[2016-04-12] MEDS: DONEPEZIL 5 MG TAB PO SCH (21:09)
[2016-04-12] MEDS: methylPREDNISolone INJ 40 MG/1 ML VIAL (J2920) IV SCH (21:10)
[2016-04-12 22:00] VITALS: BP 155/69
[2016-04-12] MEDS: AZITHROMYCIN 500 MG, VIAL MATE ADAPTER 1 EACH in D5W 250 ML IV SCH (23:24)
[2016-04-13] MEDS: cefTRIAXone SOD 2 GM in D5W MINI-BAG PLUS 50 ML IV SCH (00:25)
--- NOTE | 2016-04-13 03:43 | EDDOCDS ---
Physician Documentation [facility] Name: Patricia Sofia Age: 71 yrs Sex: Female : 1945 Arrival Date: 04/10/2016 Time: 21:10 Bed 5 Private MD: Cristian Man A. Disposition: 04/10/16 23:26 Hospitalization ordered by Terrell Valencia for Inpatient Admission. Preliminary diagnosis is Pneumonia, unspecified organism. - Bed requested for 4 [place]. - Status is Inpatient Admission. af2 - Condition is Stable. - Problem is new. - Symptoms have improved. Historical: - Allergies: No known drug Allergies; - Home Meds: 1. levothyroxine 175 mcg Oral tab 1 tab once daily 2. Vitamin B-12 1,000 mcg Oral tab daily 3. multivitamin Oral tab 4. Plavix 75 mg Oral tab 1 tab once daily 5. quinapril 20 mg Oral tab 1 tab once daily 6. Vitamin D3 400 unit oral tab 7. aspirin 81 mg Oral TbEC 1 tab once daily 8. furosemide 40 mg Oral tab 1 tab once daily 9. metformin 500 mg Oral Tb24 1 tab once daily 10. docusate sodium 100 mg Oral cap 1 cap 2 times per day 11. loratadine 10 mg Oral TbDL 1 tab once daily 12. simvastatin 80 mg Oral tab daily 13. Aricept 10 mg Oral tab 1 tab once daily 14. citalopram 20 mg Oral tab 1 tab once daily 15. Fosamax 70 mg Oral tab 1 tab once wkly 16. Atrovent 18 mcg/actuation Inhl aero as needed - PMHx: Diabetes - NIDDM: controlled; CHF; COPD; Hypothyroidism; multiple lung nodules; hx monoclonal gammopathy; OA; osteopenia; Depression; Anxiety; colonic polyps; copnstipation; degenerative dementia; vitamin d deficiency; vitamin b 12 deficiency; - PSHx: hernia repair; Hysterectomy; - Social history: Smoking status: Patient states former smoker of tobacco. No barriers to communication noted, The patient speaks fluent Turkish, Speaks appropriately for age. - Family history: Not pertinent. - : The pt / caregiver states he / she is not on anticoagulants. Home medication list is obtained from the facility JUN. - Exposure Risk Screening:: None identified. Vital Signs: 04/10 21:11 BP 196 / 75; Pulse 108; Resp 16 S; Temp 98.9(O); Pulse Ox 91% on R/A; Weight 80.74 kg / gr2 178 lbs (R); Height 5 ft. 6 in. (167.64 cm) (R); Pain 4/10; 21:21 BP 154 / 63 (auto/); nn1 21:21 Pulse 100 MON; Pulse Ox 89% ; nn1 21:33 Pulse 82 MON; Pulse Ox 94% ; nn1 21:34 BP 144 / 60 (auto/); nn1 21:36 BP 128 / 60 (auto/); nn1 21:36 Pulse 84 MON; Pulse Ox 94% ; nn1 21:51 BP 129 / 66 (auto/); nn1 21:51 Pulse 80 MON; Pulse Ox 95% ; nn1 22:06 BP 121 / 58 (auto/); nn1 22:06 Pulse 88 MON; Pulse Ox 96% ; nn1 22:21 BP 124 / 59 (auto/); nn1 22:21 Pulse 96 MON; Pulse Ox 93% ; nn1 22:36 BP 128 / 57 (auto/); nn1 22:36 Pulse 84 MON; Pulse Ox 93% ; nn1 04/11 02:41 BP 110 / 56; ka4 04/10 21:11 Body Mass Index 28.73 (80.74 kg, 167.64 cm) gr2 MDM: 04/10 21:25 ECG WITH READING ER PHYS+CARDIAG ordered. EDMS 21:47 -Blood Culture (Adults Only), peripheral from different site, or from device/port/PICC bs6 etc. if present ordered. 21:47 Call Respiratory ordered. bs6 21:47 Digital Retoucher/Pulse Ox/q 15 min VS ordered. bs6 21:47 IV Saline Lock ordered. bs6 21:47 Oxygen at 4L/Min NC or Home dosage ordered. bs6 21:47 Rhythm Strip to chart ordered. bs6 21:47 Albuterol-Ipratropium 3 ml Inhalation once ordered. bs6 21:47 Albuterol 5 mg Nebulizer once ordered. bs6 21:48 Basic Metabolic Profile Ordered. EDMS 21:48 CBC with Diff Ordered. EDMS 21:48 Lactic Acid (Retana tube on ice) Ordered. EDMS 21:48 -Blood Culture Ordered. EDMS 21:48 -Influenza A&B Rapid Antigen - Nose Ordered. EDMS 21:49 Call Respiratory complete. ms18 21:54 -Blood Culture (Adults Only), peripheral from different site, or from device/port/PICC tmm1 etc. if present complete. 21:55 BLOOD CULTURES Ordered. EDMS 22:11 Financial registration complete. gb 22:13 [facility] Payment Agreement was scanned into [employer] and attached to record. gb 22:17 Basic Metabolic Profile Reviewed. cs11 22:17 CBC with Diff Reviewed. cs11 22:18 NS 0.9% 500 ml IV at bolus once ordered. bs6 22:20 BED REQUEST+ADM ordered. EDMS 22:44 Chest, 1 view Ordered. EDMS 22:50 cefUROXime 1.5 grams IV at calculated rate once over 30 mins; dilute in 50mL of NS or cs11 D5W ordered. 22:50 azithromycin 500 mg IVPB once over 1 hrs; dilute in 250mL of D5W or NS ordered. cs11 23:50 LACTIC ACID LEVEL, LACTATE Ordered. EDMS 23:50 CBC WITH DIFFERENTIAL Ordered. EDMS 23:50 BASIC METABOLIC PROFILE Ordered. EDMS 23:51 LEGIONELLA ANTIGEN URINE Ordered. EDMS 23:51 RESPIRATORY PANEL Ordered. EDMS 23:51 SPUTUM CULTURE AND GRAM STAIN Ordered. EDMS 01/01 00:45 Dexamethasone 6 mg IV at bolus once ordered. cs11 00:45 Levalbuterol 1.25 mg Nebulizer once ordered. cs11 00:45 Call Respiratory ordered. cs11 00:45 Call Respiratory complete. rs6 01:26 2 GRAM SODIUM DIET ordered. EDMS 01:26 LOW FAT LOW CHOLESTEROL DIET ordered. EDMS 01:26 THYROID STIMULATING HORMONE Ordered. EDMS 01:27 URINALYSIS Ordered. EDMS 01:27 URINE CULTURE Ordered. EDMS 01:32 ECHOCARD,DOPPLER/COLOR FLOW ordered. EDMS 01:33 HEMOGLOBIN A1C Ordered. EDMS 01:35 Admission / Observation Status ordered. EDMS 08:56 T-Sheet-- Draft Copy was scanned into [employer] and attached to record. [facility] Administered Medications: 04/10 22:00 Drug: Albuterol-Ipratropium 3 ml [ipratropium-albuterol 0.5 mg-3 mg(2.5 mg base)/3 mL jc3 nebulization soln (3 mL)] Route: Inhalation; 22:00 Drug: Albuterol 5 mg [albuterol sulfate 2.5 mg/0.5 mL solution for nebulization (1 mL)] jc3 Route: Nebulizer; 22:35 Drug: NS 0.9% 500 ml [sodium chloride 0.9 % intravenous solution] Route: IV; Rate: nn1 bolus; Site: left antecubital; 23:03 Drug: cefUROXime 1.5 grams [cefuroxime sodium 750 mg solution for injection] Route: IV; nn1 Rate: calculated rate; Infused Over: 30 mins; Site: left antecubital; 04/11 00:09 Drug: azithromycin 500 mg [azithromycin 500 mg intravenous solution] Route: IVPB; nn1 Infused Over: 1 hrs; Site: left antecubital; 01:03 Drug: Levalbuterol 1.25 mg [levalbuterol 1.25 mg/0.5 mL solution for nebulization (0.5 jc3 mL)] Route: Nebulizer; 01:07 Drug: Dexamethasone 6 mg [dexamethasone 4 mg/mL injection solution] Route: IV; Rate: af2 bolus; Site: left antecubital; Signatures: Dispatcher [employer] EDMS Bindu Simpson RN RN Erika Ballesteros, Reg Reg gb Thong Valerio, DO DO cs11 Kanwal Jerome, MEDICAL OFFICE REP MEDICAL OFFICE REP tmm1 Broderick Nesbitt RN RN Ирина Lord, DO DO bs6 Arabella Davenport RN RN ms18 Margaret Washington, MEDICAL OFFICE REP MEDICAL OFFICE REP rs6 Marilee Payne RN RN af2 Lakshmi Ortiz Joseph jc3 Stanley Brito RN nn1 The chart was reviewed and I authenticate all verbal orders and agree with the evaluation and treatment provided.Corrections: (The following items were deleted from the chart) 04/10 22:44 21:48 Chest, 2 view (PA\E\Lat)+XR ordered. EDMS EDMS 04/11 01:30 01:27 BLOOD CULTURES ordered. EDMS EDMS Attachments: 04/10 22:13 [facility] Payment Agreement gb 04/11 08:56 T-Sheet-- Draft Copy [facility] Chart Complete MTDD
--- NOTE | 2016-04-13 03:43 | EDDOCDS ---
Nurse's Notes [facility] Name: Patricia Sofia Age: 71 yrs Sex: Female : 1945 Arrival Date: 04/10/2016 Time: 21:10 Bed 5 Private MD: Cristian Man A. Diagnosis: Pneumonia, unspecified organism Presentation: 04/10 21:14 Presenting complaint: caregiver reports that patient has started with symptoms on jmb late afternoon with chills evening. Call placed to pcp, informed to allow to go for believing to be a bug. Breathing difficulty started yesterday afternoon with today getting worse. Adult Sepsis Screening: Patient's respiratory rate is less than 22. Systolic blood pressure is greater than 100. Patient has a qSOFA score of 0- Negative Sepsis Screen. Suicide/Homicide risk assessment- the patient denies having any suicidal and/or homicidal ideations and does not present with any other emotional, behavioral or mental health complaints. Status: Patient is not a services advisor or dependent. Transition of care: patient was sent by [facility]. 21:14 Acuity: SARY Level 3 [facility] 21:14 Method Of Arrival: Wheelchair [facility] Triage Assessment: 21:23 General: Appears uncomfortable, Behavior is appropriate for age. Pain: Denies pain. [facility] Neurological: Level of Consciousness is awake, alert, obeys commands. Respiratory: Onset: The symptoms/episode began/occurred gradually, Airway is patent Respiratory effort is labored, Respiratory pattern is regular. Derm: Skin is pink, warm & dry. Musculoskeletal: Range of motion intact in all extremities. Historical: - Allergies: No known drug Allergies; - Home Meds: 1. levothyroxine 175 mcg Oral tab 1 tab once daily 2. Vitamin B-12 1,000 mcg Oral tab daily 3. multivitamin Oral tab 4. Plavix 75 mg Oral tab 1 tab once daily 5. quinapril 20 mg Oral tab 1 tab once daily 6. Vitamin D3 400 unit oral tab 7. aspirin 81 mg Oral TbEC 1 tab once daily 8. furosemide 40 mg Oral tab 1 tab once daily 9. metformin 500 mg Oral Tb24 1 tab once daily 10. docusate sodium 100 mg Oral cap 1 cap 2 times per day 11. loratadine 10 mg Oral TbDL 1 tab once daily 12. simvastatin 80 mg Oral tab daily 13. Aricept 10 mg Oral tab 1 tab once daily 14. citalopram 20 mg Oral tab 1 tab once daily 15. Fosamax 70 mg Oral tab 1 tab once wkly 16. Atrovent 18 mcg/actuation Inhl aero as needed - PMHx: Diabetes - NIDDM: controlled; CHF; COPD; Hypothyroidism; multiple lung nodules; hx monoclonal gammopathy; OA; osteopenia; Depression; Anxiety; colonic polyps; copnstipation; degenerative dementia; vitamin d deficiency; vitamin b 12 deficiency; - PSHx: hernia repair; Hysterectomy; - Social history: Smoking status: Patient states former smoker of tobacco. No barriers to communication noted, The patient speaks fluent Kiswahili, Speaks appropriately for age. - Family history: Not pertinent. - : The pt / caregiver states he / she is not on anticoagulants. Home medication list is obtained from the facility JUN. - Exposure Risk Screening:: None identified. Screenin/01 01:50 Screening information is obtained from the patient. Fall risk: No risks identified. af2 Assistance ADL's: requires no assistance with activities of daily living. Abuse/DV Screen: The patient / caregiver reports he/she is: not in a situation that causes fear, pain or injury. Nutritional screening: No deficits noted. Advance Directives: Currently, there is no health care proxy. home support is adequate. Assessment: 04/10 21:32 General: Appears in no apparent distress, Behavior is appropriate for age, cooperative. kas2 Pain: Denies pain. Neurological: Level of Consciousness is awake, alert, obeys commands, Speech is normal, Facial symmetry appears normal. Cardiovascular: Capillary refill < 3 seconds Heart tones S1 S2 present Rhythm is sinus rhythm No ectopy. Respiratory: Airway is patent Respiratory effort is even, labored, Breath sounds with wheezes expiratory bilaterally. Reports shortness of breath cough that is productive, clear mucus production labored breathing. Derm: Skin is pink, warm & dry. 21:58 Reassessment: Patient appears in no apparent distress at this time. Cardiovascular: nn1 Edema is absent. Pulses are all present. Rhythm is sinus rhythm. Derm: Skin is pink, warm & dry. 23:04 General: Appears in no apparent distress, comfortable, Behavior is appropriate for age, nn1 cooperative. Respiratory: Airway is patent Respiratory effort is even. Derm: Skin is pink, warm & dry. 04/11 00:09 General: Appears in no apparent distress, comfortable, Behavior is appropriate for age, nn1 cooperative, Patient not coughing at this time, comfortable. Transferring care of patient to FILIPPO Hunt, . 00:37 General: assumed care of pt at this time. pt is without complaints.. Cardiovascular: af2 Rhythm is sinus rhythm No ectopy. Respiratory: Airway is patent Respiratory effort is even, labored, Breath sounds with crackles expiratory bilaterally. Breath sounds with wheezes expiratory bilaterally. Reports shortness of breath cough that is labored breathing. Derm: Skin is pink, warm & dry. 01:11 General: Admit nurse at bedside with pt, family remains at bedside. rr even and af2 unlabored. . Vital Signs: 04/10 21:11 BP 196 / 75; Pulse 108; Resp 16 S; Temp 98.9(O); Pulse Ox 91% on R/A; Weight 80.74 kg gr2 (R); Height 5 ft. 6 in. (167.64 cm) (R); Pain 4/10; 21:21 BP 154 / 63 (auto/); nn1 21:21 Pulse 100 MON; Pulse Ox 89% ; nn1 21:33 Pulse 82 MON; Pulse Ox 94% ; nn1 21:34 BP 144 / 60 (auto/); nn1 21:36 BP 128 / 60 (auto/); nn1 21:36 Pulse 84 MON; Pulse Ox 94% ; nn1 21:51 BP 129 / 66 (auto/); nn1 21:51 Pulse 80 MON; Pulse Ox 95% ; nn1 22:06 BP 121 / 58 (auto/); nn1 22:06 Pulse 88 MON; Pulse Ox 96% ; nn1 22:21 BP 124 / 59 (auto/); nn1 22:21 Pulse 96 MON; Pulse Ox 93% ; nn1 22:36 BP 128 / 57 (auto/); nn1 22:36 Pulse 84 MON; Pulse Ox 93% ; nn1 04/11 02:41 BP 110 / 56; ka4 04/10 21:11 Body Mass Index 28.73 (80.74 kg, 167.64 cm) gr2 Vitals: 04/10 21:11 Log In Time: April 10, 2016 at 21:11. RN notified that patient meets Red Flag gr2 criteria. ED Course: 21:10 Patient visited by Lawanda Yousif. gr2 21:10 Patient moved to Waiting gr2 21:11 Cristian Man is Private Physician. gr2 21:16 Triage Initiated jmb 21:23 Patient visited by Lawanda Yousif. gr2 21:23 Patient moved to 5 sls1 21:24 Ирина Rojas DO is PHCP. bs6 21:24 Thong Valerio DO is Attending Physician. bs6 21:27 Patient visited by Ирина Rojas DO. bs6 21:28 Patient visited by Ирина Rojas DO. bs6 21:34 Inserted saline lock: 20 gauge in left antecubital area and blood collected. The kas2 patient tolerated the procedure well. O2 via nasal cannula \T\ 3L/min. 21:36 Patient visited by Margaret Washington PCA. rs6 21:36 EKG done. (by ED staff). Reviewed by Ирина Rojas DO. rs6 21:49 Lactic Acid (Retana tube on ice) Sent. ms18 21:49 -Blood Culture Sent. ms18 21:49 Basic Metabolic Profile Sent. ms18 21:49 CBC with Diff Sent. ms18 21:58 -Influenza A&B Rapid Antigen - Nose Sent. nn1 22:13 [facility] Payment Agreement was scanned into [employer] and attached to record. gb 22:16 Notified attending ED physician of Critical lab value. sls1 22:17 Patient name changed from Patricia\S\\S\[place]\S\ to Patricia\S\M\S\[place]. EDMS 22:29 Patient visited by Stanley Brito RN. nn1 23:11 Patient visited by Stanley Brito RN. nn1 23:24 Terrell Valencia MD is Hospitalizing Provider. bs6 04/11 00:38 Patient visited by Marilee Payne RN. af2 01:12 Patient visited by Marilee Payne RN. af2 01:51 The patient / caregiver is instructed regarding the plan of care and ED course. Patient af2 has correct armband on for positive identification. Placed in gown. 01:51 No procedures done that require assistance. af2 01:53 Patient visited by Marilee Payne RN. af2 02:41 Patient visited by Shantel Sheehan LPN. ka4 08:56 T-Sheet-- Draft Copy was scanned into [employer] and attached to record. [facility] Administered Medications: 04/10 22:00 Drug: Albuterol-Ipratropium 3 ml [ipratropium-albuterol 0.5 mg-3 mg(2.5 mg base)/3 mL jc3 nebulization soln (3 mL)] Route: Inhalation; 22:00 Drug: Albuterol 5 mg [albuterol sulfate 2.5 mg/0.5 mL solution for nebulization (1 mL)] jc3 Route: Nebulizer; 22:35 Drug: NS 0.9% 500 ml [sodium chloride 0.9 % intravenous solution] Route: IV; Rate: nn1 bolus; Site: left antecubital; 23:03 Drug: cefUROXime 1.5 grams [cefuroxime sodium 750 mg solution for injection] Route: IV; nn1 Rate: calculated rate; Infused Over: 30 mins; Site: left antecubital; 04/11 00:09 Drug: azithromycin 500 mg [azithromycin 500 mg intravenous solution] Route: IVPB; nn1 Infused Over: 1 hrs; Site: left antecubital; 01:03 Drug: Levalbuterol 1.25 mg [levalbuterol 1.25 mg/0.5 mL solution for nebulization (0.5 jc3 mL)] Route: Nebulizer; 01:07 Drug: Dexamethasone 6 mg [dexamethasone 4 mg/mL injection solution] Route: IV; Rate: af2 bolus; Site: left antecubital; RT: 04/10 22:00 Initial Med Neb Given as ordered. O2 via nasal cannula \T\ 3L/min. Respiratory: Breath jc3 sounds are diminished bilaterally. Breath sounds with wheezes in right upper lobe and right middle lobe at inspiration. 22:07 Respiratory: Breath sounds are diminished Breath sounds with wheezes bilaterally. jc3 04/11 01:03 Subsequent Med Neb Given as ordered. Respiratory: Breath sounds are diminished Breath jc3 sounds with wheezes bilaterally. at expiration. Order Results: Lab Order: Basic Metabolic Profile; SPEC'M 04/10/16 21:12 Test: GLUCOSE, FASTING; Value: 218; Range: 83-110; Abnormal: Above high normal; Units: MG/DL; Status: F Test: BLOOD UREA NITROGEN; Value: 33; Range: 7-18; Abnormal: Above high normal; Units: MG/DL; Status: F Test: CREATININE FOR GFR; Value: 1.44; Range: 0.55-1.02; Abnormal: Above high normal; Units: MG/DL; Status: F Test: GLOMERULAR FILTRATION RATE; Value: 38.0; Range: >39; Abnormal: Below low normal; Status: F Test: SODIUM LEVEL; Value: 138; Range: 136-145; Units: MEQ/L; Status: F Test: POTASSIUM SERUM; Value: 4.0; Range: 3.5-5.1; Units: MEQ/L; Status: F Test: CHLORIDE LEVEL; Value: 105; Range: 98-107; Units: MEQ/L; Status: F Test: CARBON DIOXIDE LEVEL; Value: 24; Range: 21-32; Units: MEQ/L; Status: F Test: ANION GAP; Value: 9; Range: 8-16; Units: MEQ/L; Status: F Test: CALCIUM LEVEL; Value: 8.6; Range: 8.8-10.2; Abnormal: Below low normal; Units: MG/DL; Status: F Test Note: ; Units are mL/min/1.73 m2 Chronic Kidney Disease Staging per NKF: Stage I & II GFR >=60 Normal to Mildly Decreased Stage III GFR 30-59 Moderately Decreased Stage IV GFR 15-29 Severely Decreased Stage V GFR <15 Very Little GFR Left ESRD GFR <15 on [employer]ER Lab Order: CBC with Diff; SPEC'M 04/10/16 21:12 Test: WHITE BLOOD COUNT; Value: 5.3; Range: 4.0-10.0; Units: K/mm3; Status: F Test: RED BLOOD COUNT; Value: 4.08; Range: 4.00-5.40; Units: M/mm3; Status: F Test: HEMOGLOBIN; Value: 11.9; Range: 12.0-16.0; Abnormal: Below low normal; Units: g/dl; Status: F Test: HEMATOCRIT; Value: 36.1; Range: 36.0-47.0; Units: %; Status: F Test: MEAN CORPUSCULAR VOLUME; Value: 88.6; Range: 80.0-96.0; Units: fl; Status: F Test: MEAN CORPUSCULAR HEMOGLOBIN; Value: 29.1; Range: 27.0-33.0; Units: pg; Status: F Test: MEAN CORPUSCULAR HGB CONC; Value: 32.8; Range: 32.0-36.5; Units: g/dl; Status: F Test: RED CELL DISTRIBUTION WIDTH; Value: 13.6; Range: 11.5-14.5; Units: %; Status: F Test: PLATELET COUNT, AUTOMATED; Value: 191; Range: 150-450; Units: k/mm3; Status: F Test: NEUTROPHILS %; Value: 59.0; Range: 36.0-66.0; Units: %; Status: F Test: LYMPH %; Value: 28.5; Range: 24.0-44.0; Units: %; Status: F Test: MONO %; Value: 7.7; Range: 0.0-5.0; Abnormal: Above high normal; Units: %; Status: F Test: EOS %; Value: 0.2; Range: 0.0-3.0; Units: %; Status: F Test: BASO %; Value: 1.3; Range: 0.0-1.0; Abnormal: Above high normal; Units: %; Status: F Test: LARGE UNSTAINED CELL %; Value: 3.3; Range: 0.0-4.0; Units: %; Status: F Test: NEUTROPHILS #; Value: 3.2; Range: 1.8-7.7; Units: K/mm3; Status: F Test: LYMPH #; Value: 1.7; Range: 1.5-4.5; Units: K/mm3; Status: F Test: MONO #; Value: 0.4; Range: 0.0-0.8; Units: K/mm3; Status: F Test: EOS #; Value: 0.0; Range: 0.0-0.50; Units: K/mm3; Status: F Test: BASO #; Value: 0.1; Range: 0.0-0.2; Units: K/mm3; Status: F Test: LARGE UNSTAINED CELL #; Value: 0.2; Range: 0.0-0.4; Units: K/mm3; Status: F Lab Order: Lactic Acid (Retana tube on ice); SPEC'M 04/10/16 21:12 Test: LACTIC ACID LEVEL, LACTATE; Value: 3.5; Range: 0.4-2.0; Abnormal: Above upper panic limits; Units: MMOL/L; Status: F Lab Order: -Influenza A&B Rapid Antigen - Nose; SPEC'M 04/10/16 21:54 Test: INFLUENZA A RAPID SCR by ICA; Value: INFLUENZA A RESULTS NEGATIVE; Status: F Test: INFLUENZA A RAPID SCR by ICA; Value: Comments:; Status: F Test: INFLUENZA B RAPID SCR by ICA; Value: INFLUENZA B RESULTS NEGATIVE; Status: F Test Note: ; The Influenza test is a direct rapid immunoassay for the qualitative detection of Influenza viral antigen. Cell culture (Viral Culture) testing should be considered to confirm NEGATIVE results and to assist in detecting other viruses that can provide similar clinical symptoms. Please contact the lab within 24 hours ([phone]) if confirmatory testing is desired. Outcome: 04/10 23:26 Decision to Hospitalize by Provider. bs6 04/11 01:51 Discharge Assessment: patient administered narcotics - no. The following High Risk af2 Discharge criteria are identified: None. Admitted to Med/Surg accompanied by tech, via stretcher, with chart. Condition: stable. No special radiology studies were completed. Property :Personal belongings accompany Pt. 02:43 Patient left the ED. af2 Signatures: Dispatcher [employer] EDDC Erika Whitaker, Reg Reg TobyKevin brooke jc3 Linette Magaña RN RN sls1 Lawanda Yousif gr2 Broderick Nesbitt RN RN Shantel Russo LPN LPN ka4 Ирина Rojas DO DO bs6 Arabella Davenport RN RN ms18 Margaret Washington, SURVEYING TEACHER SURVEYING TEACHER rs6 Marilee PayneRN RN af2 Stanley Brito RN RN nn1 Tesha Davenport RN RN keily2 Lakshmi Ortiz Corrections: (The following items were deleted from the chart) 04/10 22:07 22:00 O2 via nasal cannula \T\ 2L/min jc3 jc3 Chart Complete MTDD
--- NOTE | 2016-04-13 03:43 | EDDOCDS ---
Physician Documentation [facility] Name: Patricia Sofia Age: 71 yrs Sex: Female : 1945 Arrival Date: 04/10/2016 Time: 21:10 Bed 5 Private MD: Cristian Man A. Disposition: 04/10/16 23:26 Hospitalization ordered by Terrell Valencia for Inpatient Admission. Preliminary diagnosis is Pneumonia, unspecified organism. - Bed requested for 4 [place]. - Status is Inpatient Admission. af2 - Condition is Stable. - Problem is new. - Symptoms have improved. Historical: - Allergies: No known drug Allergies; - Home Meds: 1. levothyroxine 175 mcg Oral tab 1 tab once daily 2. Vitamin B-12 1,000 mcg Oral tab daily 3. multivitamin Oral tab 4. Plavix 75 mg Oral tab 1 tab once daily 5. quinapril 20 mg Oral tab 1 tab once daily 6. Vitamin D3 400 unit oral tab 7. aspirin 81 mg Oral TbEC 1 tab once daily 8. furosemide 40 mg Oral tab 1 tab once daily 9. metformin 500 mg Oral Tb24 1 tab once daily 10. docusate sodium 100 mg Oral cap 1 cap 2 times per day 11. loratadine 10 mg Oral TbDL 1 tab once daily 12. simvastatin 80 mg Oral tab daily 13. Aricept 10 mg Oral tab 1 tab once daily 14. citalopram 20 mg Oral tab 1 tab once daily 15. Fosamax 70 mg Oral tab 1 tab once wkly 16. Atrovent 18 mcg/actuation Inhl aero as needed - PMHx: Diabetes - NIDDM: controlled; CHF; COPD; Hypothyroidism; multiple lung nodules; hx monoclonal gammopathy; OA; osteopenia; Depression; Anxiety; colonic polyps; copnstipation; degenerative dementia; vitamin d deficiency; vitamin b 12 deficiency; - PSHx: hernia repair; Hysterectomy; - Social history: Smoking status: Patient states former smoker of tobacco. No barriers to communication noted, The patient speaks fluent Persian, Speaks appropriately for age. - Family history: Not pertinent. - : The pt / caregiver states he / she is not on anticoagulants. Home medication list is obtained from the facility JUN. - Exposure Risk Screening:: None identified. Vital Signs: 04/10 21:11 BP 196 / 75; Pulse 108; Resp 16 S; Temp 98.9(O); Pulse Ox 91% on R/A; Weight 80.74 kg / gr2 178 lbs (R); Height 5 ft. 6 in. (167.64 cm) (R); Pain 4/10; 21:21 BP 154 / 63 (auto/); nn1 21:21 Pulse 100 MON; Pulse Ox 89% ; nn1 21:33 Pulse 82 MON; Pulse Ox 94% ; nn1 21:34 BP 144 / 60 (auto/); nn1 21:36 BP 128 / 60 (auto/); nn1 21:36 Pulse 84 MON; Pulse Ox 94% ; nn1 21:51 BP 129 / 66 (auto/); nn1 21:51 Pulse 80 MON; Pulse Ox 95% ; nn1 22:06 BP 121 / 58 (auto/); nn1 22:06 Pulse 88 MON; Pulse Ox 96% ; nn1 22:21 BP 124 / 59 (auto/); nn1 22:21 Pulse 96 MON; Pulse Ox 93% ; nn1 22:36 BP 128 / 57 (auto/); nn1 22:36 Pulse 84 MON; Pulse Ox 93% ; nn1 04/11 02:41 BP 110 / 56; ka4 04/10 21:11 Body Mass Index 28.73 (80.74 kg, 167.64 cm) gr2 MDM: 04/10 21:25 ECG WITH READING ER PHYS+CARDIAG ordered. EDMS 21:47 -Blood Culture (Adults Only), peripheral from different site, or from device/port/PICC bs6 etc. if present ordered. 21:47 Call Respiratory ordered. bs6 21:47 Auto [employer] Mechanic Apprentice/Pulse Ox/q 15 min VS ordered. bs6 21:47 IV Saline Lock ordered. bs6 21:47 Oxygen at 4L/Min NC or Home dosage ordered. bs6 21:47 Rhythm Strip to chart ordered. bs6 21:47 Albuterol-Ipratropium 3 ml Inhalation once ordered. bs6 21:47 Albuterol 5 mg Nebulizer once ordered. bs6 21:48 Basic Metabolic Profile Ordered. EDMS 21:48 CBC with Diff Ordered. EDMS 21:48 Lactic Acid (Retana tube on ice) Ordered. EDMS 21:48 -Blood Culture Ordered. EDMS 21:48 -Influenza A&B Rapid Antigen - Nose Ordered. EDMS 21:49 Call Respiratory complete. ms18 21:54 -Blood Culture (Adults Only), peripheral from different site, or from device/port/PICC tmm1 etc. if present complete. 21:55 BLOOD CULTURES Ordered. EDMS 22:11 Financial registration complete. gb 22:13 [facility] Payment Agreement was scanned into [employer] and attached to record. gb 22:17 Basic Metabolic Profile Reviewed. cs11 22:17 CBC with Diff Reviewed. cs11 22:18 NS 0.9% 500 ml IV at bolus once ordered. bs6 22:20 BED REQUEST+ADM ordered. EDMS 22:44 Chest, 1 view Ordered. EDMS 22:50 cefUROXime 1.5 grams IV at calculated rate once over 30 mins; dilute in 50mL of NS or cs11 D5W ordered. 22:50 azithromycin 500 mg IVPB once over 1 hrs; dilute in 250mL of D5W or NS ordered. cs11 23:50 LACTIC ACID LEVEL, LACTATE Ordered. EDMS 23:50 CBC WITH DIFFERENTIAL Ordered. EDMS 23:50 BASIC METABOLIC PROFILE Ordered. EDMS 23:51 LEGIONELLA ANTIGEN URINE Ordered. EDMS 23:51 RESPIRATORY PANEL Ordered. EDMS 23:51 SPUTUM CULTURE AND GRAM STAIN Ordered. EDMS 01/01 00:45 Dexamethasone 6 mg IV at bolus once ordered. cs11 00:45 Levalbuterol 1.25 mg Nebulizer once ordered. cs11 00:45 Call Respiratory ordered. cs11 00:45 Call Respiratory complete. rs6 01:26 2 GRAM SODIUM DIET ordered. EDMS 01:26 LOW FAT LOW CHOLESTEROL DIET ordered. EDMS 01:26 THYROID STIMULATING HORMONE Ordered. EDMS 01:27 URINALYSIS Ordered. EDMS 01:27 URINE CULTURE Ordered. EDMS 01:32 ECHOCARD,DOPPLER/COLOR FLOW ordered. EDMS 01:33 HEMOGLOBIN A1C Ordered. EDMS 01:35 Admission / Observation Status ordered. EDMS 08:56 T-Sheet-- Draft Copy was scanned into [employer] and attached to record. [facility] Administered Medications: 04/10 22:00 Drug: Albuterol-Ipratropium 3 ml [ipratropium-albuterol 0.5 mg-3 mg(2.5 mg base)/3 mL jc3 nebulization soln (3 mL)] Route: Inhalation; 22:00 Drug: Albuterol 5 mg [albuterol sulfate 2.5 mg/0.5 mL solution for nebulization (1 mL)] jc3 Route: Nebulizer; 22:35 Drug: NS 0.9% 500 ml [sodium chloride 0.9 % intravenous solution] Route: IV; Rate: nn1 bolus; Site: left antecubital; 23:03 Drug: cefUROXime 1.5 grams [cefuroxime sodium 750 mg solution for injection] Route: IV; nn1 Rate: calculated rate; Infused Over: 30 mins; Site: left antecubital; 04/11 00:09 Drug: azithromycin 500 mg [azithromycin 500 mg intravenous solution] Route: IVPB; nn1 Infused Over: 1 hrs; Site: left antecubital; 01:03 Drug: Levalbuterol 1.25 mg [levalbuterol 1.25 mg/0.5 mL solution for nebulization (0.5 jc3 mL)] Route: Nebulizer; 01:07 Drug: Dexamethasone 6 mg [dexamethasone 4 mg/mL injection solution] Route: IV; Rate: af2 bolus; Site: left antecubital; Signatures: Dispatcher [employer] EDMS Bindu Simpson RN RN Erika Ballesteros, Reg Reg gb Thong Valerio, DO DO cs11 Kanwal Jerome, MARKETING TEAM LEAD MARKETING TEAM LEAD tmm1 Broderick Nesbitt RN RN Ирина Lord, DO DO bs6 Arabella Davenport RN RN ms18 Margaret Washington, MARKETING TEAM LEAD MARKETING TEAM LEAD rs6 Marilee Payne RN RN af2 Lakshmi Ortiz Joseph jc3 Stanley Brito RN nn1 The chart was reviewed and I authenticate all verbal orders and agree with the evaluation and treatment provided.Corrections: (The following items were deleted from the chart) 04/10 22:44 21:48 Chest, 2 view (PA\E\Lat)+XR ordered. EDMS EDMS 04/11 01:30 01:27 BLOOD CULTURES ordered. EDMS EDMS Attachments: 04/10 22:13 [facility] Payment Agreement gb 04/11 08:56 T-Sheet-- Draft Copy [facility] Chart Complete MTDD
[2016-04-13] MEDS: HEPARIN SOD (PORCINE) 5000 UNITS/ML VIAL SC SCH ×3 (05:39→21:43)
[2016-04-13] MEDS: LEVOTHYROXINE 0.15 MG TAB (150 MCG) PO SCH (05:39)
[2016-04-13 06:00] VITALS: BP 139/74
[2016-04-13 06:06] LABS: MEAN CORPUSCULAR HEMOGLOBIN 29.3 pg (27.0-33.0); MEAN CORPUSCULAR VOLUME 91.5 fl (80.0-96.0); RED CELL DISTRIBUTION WIDTH 12.8 % (11.5-14.5); WHITE BLOOD COUNT 5.8 K/mm3 (4.0-10.0)
[2016-04-13 06:15] LABS: CREATININE FOR GFR 1.05 MG/DL (0.55-1.02); GLOMERULAR FILTRATION RATE 54.7 (>39); MAGNESIUM LEVEL 2.4 MG/DL (1.8-2.4)
[2016-04-13 06:26] LABS: POTASSIUM SERUM 5.3 MEQ/L (3.5-5.1)
[2016-04-13] MEDS: IPRATROPIUM 0.5MG/ALBUTEROL 2.5MG INH SOL UD 3ML (DUONEB)(J7620) NEB SCH ×5 (08:00→23:26)
[2016-04-13] MEDS: HumaLOG INSULIN (NovoLOG) PER UNIT SC SCH ×4 (08:01→21:00)
[2016-04-13] MEDS: ADVAIR DISKUS 500/50 INH PWD INH SCH ×2 (08:03→19:28)
[2016-04-13 08:49] VITALS: BP 150/58
[2016-04-13] MEDS: LORATADINE 10 MG TAB PO SCH (09:40)
[2016-04-13] MEDS: CYANOCOBALAMIN 500 MCG TAB PO SCH (09:40)
[2016-04-13] MEDS: CLOPIDOGREL 75 MG TAB PO SCH (09:40)
[2016-04-13] MEDS: DOCUSATE SODIUM 100 MG CAP PO SCH ×2 (09:40→21:43)
[2016-04-13] MEDS: NAMENDA 28 MG PO SCH (09:40)
[2016-04-13] MEDS: ASPIRIN 81 MG ENTERIC TAB PO SCH (09:40)
[2016-04-13] MEDS: VITAMIN D (CHOLECALCIFEROL) 400 INTERNATIONAL UNITS TAB PO SCH (09:41)
[2016-04-13] MEDS: MULTIVITAMINS/MINERALS THERAP 1 TAB PO SCH (09:41)
[2016-04-13] MEDS: methylPREDNISolone INJ 40 MG/1 ML VIAL (J2920) IV SCH ×2 (09:41→21:42)
[2016-04-13] MEDS: FUROSEMIDE 40 MG TAB PO SCH (09:41)
[2016-04-13 10:18] VITALS: BP 150/58
--- NOTE | 2016-04-13 14:05 | EDDOCDS ---
Physician Documentation [facility] Name: Patricia Sofia Age: 71 yrs Sex: Female : 1945 Arrival Date: 04/10/2016 Time: 21:10 Bed 5 Private MD: Cristian Man A. Disposition: 04/10/16 23:26 Hospitalization ordered by Terrell Valencia for Inpatient Admission. Preliminary diagnosis is Pneumonia, unspecified organism. - Bed requested for 4 [place]. - Status is Inpatient Admission. af2 - Condition is Stable. - Problem is new. - Symptoms have improved. Historical: - Allergies: No known drug Allergies; - Home Meds: 1. levothyroxine 175 mcg Oral tab 1 tab once daily 2. Vitamin B-12 1,000 mcg Oral tab daily 3. multivitamin Oral tab 4. Plavix 75 mg Oral tab 1 tab once daily 5. quinapril 20 mg Oral tab 1 tab once daily 6. Vitamin D3 400 unit oral tab 7. aspirin 81 mg Oral TbEC 1 tab once daily 8. furosemide 40 mg Oral tab 1 tab once daily 9. metformin 500 mg Oral Tb24 1 tab once daily 10. docusate sodium 100 mg Oral cap 1 cap 2 times per day 11. loratadine 10 mg Oral TbDL 1 tab once daily 12. simvastatin 80 mg Oral tab daily 13. Aricept 10 mg Oral tab 1 tab once daily 14. citalopram 20 mg Oral tab 1 tab once daily 15. Fosamax 70 mg Oral tab 1 tab once wkly 16. Atrovent 18 mcg/actuation Inhl aero as needed - PMHx: Diabetes - NIDDM: controlled; CHF; COPD; Hypothyroidism; multiple lung nodules; hx monoclonal gammopathy; OA; osteopenia; Depression; Anxiety; colonic polyps; copnstipation; degenerative dementia; vitamin d deficiency; vitamin b 12 deficiency; - PSHx: hernia repair; Hysterectomy; - Social history: Smoking status: Patient states former smoker of tobacco. No barriers to communication noted, The patient speaks fluent Azeri, Speaks appropriately for age. - Family history: Not pertinent. - : The pt / caregiver states he / she is not on anticoagulants. Home medication list is obtained from the facility JUN. - Exposure Risk Screening:: None identified. Vital Signs: 04/10 21:11 BP 196 / 75; Pulse 108; Resp 16 S; Temp 98.9(O); Pulse Ox 91% on R/A; Weight 80.74 kg / gr2 178 lbs (R); Height 5 ft. 6 in. (167.64 cm) (R); Pain 4/10; 21:21 BP 154 / 63 (auto/); nn1 21:21 Pulse 100 MON; Pulse Ox 89% ; nn1 21:33 Pulse 82 MON; Pulse Ox 94% ; nn1 21:34 BP 144 / 60 (auto/); nn1 21:36 BP 128 / 60 (auto/); nn1 21:36 Pulse 84 MON; Pulse Ox 94% ; nn1 21:51 BP 129 / 66 (auto/); nn1 21:51 Pulse 80 MON; Pulse Ox 95% ; nn1 22:06 BP 121 / 58 (auto/); nn1 22:06 Pulse 88 MON; Pulse Ox 96% ; nn1 22:21 BP 124 / 59 (auto/); nn1 22:21 Pulse 96 MON; Pulse Ox 93% ; nn1 22:36 BP 128 / 57 (auto/); nn1 22:36 Pulse 84 MON; Pulse Ox 93% ; nn1 04/11 02:41 BP 110 / 56; ka4 04/10 21:11 Body Mass Index 28.73 (80.74 kg, 167.64 cm) gr2 MDM: 04/10 21:25 ECG WITH READING ER PHYS+CARDIAG ordered. EDMS 21:47 -Blood Culture (Adults Only), peripheral from different site, or from device/port/PICC bs6 etc. if present ordered. 21:47 Call Respiratory ordered. bs6 21:47 Privacy Specialist/Pulse Ox/q 15 min VS ordered. bs6 21:47 IV Saline Lock ordered. bs6 21:47 Oxygen at 4L/Min NC or Home dosage ordered. bs6 21:47 Rhythm Strip to chart ordered. bs6 21:47 Albuterol-Ipratropium 3 ml Inhalation once ordered. bs6 21:47 Albuterol 5 mg Nebulizer once ordered. bs6 21:48 Basic Metabolic Profile Ordered. EDMS 21:48 CBC with Diff Ordered. EDMS 21:48 Lactic Acid (Retana tube on ice) Ordered. EDMS 21:48 -Blood Culture Ordered. EDMS 21:48 -Influenza A&B Rapid Antigen - Nose Ordered. EDMS 21:49 Call Respiratory complete. ms18 21:54 -Blood Culture (Adults Only), peripheral from different site, or from device/port/PICC tmm1 etc. if present complete. 21:55 BLOOD CULTURES Ordered. EDMS 22:11 Financial registration complete. gb 22:13 [facility] Payment Agreement was scanned into [employer] and attached to record. gb 22:17 Basic Metabolic Profile Reviewed. cs11 22:17 CBC with Diff Reviewed. cs11 22:18 NS 0.9% 500 ml IV at bolus once ordered. bs6 22:20 BED REQUEST+ADM ordered. EDMS 22:44 Chest, 1 view Ordered. EDMS 22:50 cefUROXime 1.5 grams IV at calculated rate once over 30 mins; dilute in 50mL of NS or cs11 D5W ordered. 22:50 azithromycin 500 mg IVPB once over 1 hrs; dilute in 250mL of D5W or NS ordered. cs11 23:50 LACTIC ACID LEVEL, LACTATE Ordered. EDMS 23:50 CBC WITH DIFFERENTIAL Ordered. EDMS 23:50 BASIC METABOLIC PROFILE Ordered. EDMS 23:51 LEGIONELLA ANTIGEN URINE Ordered. EDMS 23:51 RESPIRATORY PANEL Ordered. EDMS 23:51 SPUTUM CULTURE AND GRAM STAIN Ordered. EDMS 01/01 00:45 Dexamethasone 6 mg IV at bolus once ordered. cs11 00:45 Levalbuterol 1.25 mg Nebulizer once ordered. cs11 00:45 Call Respiratory ordered. cs11 00:45 Call Respiratory complete. rs6 01:26 2 GRAM SODIUM DIET ordered. EDMS 01:26 LOW FAT LOW CHOLESTEROL DIET ordered. EDMS 01:26 THYROID STIMULATING HORMONE Ordered. EDMS 01:27 URINALYSIS Ordered. EDMS 01:27 URINE CULTURE Ordered. EDMS 01:32 ECHOCARD,DOPPLER/COLOR FLOW ordered. EDMS 01:33 HEMOGLOBIN A1C Ordered. EDMS 01:35 Admission / Observation Status ordered. EDMS 08:56 T-Sheet-- Draft Copy was scanned into [employer] and attached to record. [facility] Administered Medications: 04/10 22:00 Drug: Albuterol-Ipratropium 3 ml [ipratropium-albuterol 0.5 mg-3 mg(2.5 mg base)/3 mL jc3 nebulization soln (3 mL)] Route: Inhalation; 22:00 Drug: Albuterol 5 mg [albuterol sulfate 2.5 mg/0.5 mL solution for nebulization (1 mL)] jc3 Route: Nebulizer; 22:35 Drug: NS 0.9% 500 ml [sodium chloride 0.9 % intravenous solution] Route: IV; Rate: nn1 bolus; Site: left antecubital; 23:03 Drug: cefUROXime 1.5 grams [cefuroxime sodium 750 mg solution for injection] Route: IV; nn1 Rate: calculated rate; Infused Over: 30 mins; Site: left antecubital; 04/11 00:09 Drug: azithromycin 500 mg [azithromycin 500 mg intravenous solution] Route: IVPB; nn1 Infused Over: 1 hrs; Site: left antecubital; 01:03 Drug: Levalbuterol 1.25 mg [levalbuterol 1.25 mg/0.5 mL solution for nebulization (0.5 jc3 mL)] Route: Nebulizer; 01:07 Drug: Dexamethasone 6 mg [dexamethasone 4 mg/mL injection solution] Route: IV; Rate: af2 bolus; Site: left antecubital; Signatures: Dispatcher Med[employer] EDMS Bindu Simpson RN RN Erika Ballesteros, Reg Reg gb Thong Valerio, DO DO cs11 Kanwal Jerome, PURCHASING MANAGER/SALES PURCHASING MANAGER/SALES tmm1 Broderick Nesbitt RN RN Ирина Lord, DO DO bs6 Arabella Davenport RN RN ms18 Margaret Washington, PURCHASING MANAGER/SALES PURCHASING MANAGER/SALES rs6 Marilee Payne RN RN af2 Lakshmi Ortiz Joseph jc3 Stanley Brito RN nn1 The chart was reviewed and I authenticate all verbal orders and agree with the evaluation and treatment provided.Corrections: (The following items were deleted from the chart) 04/10 22:44 21:48 Chest, 2 view (PA\E\Lat)+XR ordered. EDMS EDMS 04/11 01:30 01:27 BLOOD CULTURES ordered. EDMS EDMS Attachments: 04/10 22:13 [facility] Payment Agreement gb 04/11 08:56 T-Sheet-- Draft Copy [facility] Chart Complete MTDD
--- NOTE | 2016-04-13 14:05 | EDDOCDS ---
Physician Documentation [facility] Name: Patricia Sofia Age: 71 yrs Sex: Female : 1945 Arrival Date: 04/10/2016 Time: 21:10 Bed 5 Private MD: Cristian Man A. Disposition: 04/10/16 23:26 Hospitalization ordered by Terrell Valencia for Inpatient Admission. Preliminary diagnosis is Pneumonia, unspecified organism. - Bed requested for 4 [place]. - Status is Inpatient Admission. af2 - Condition is Stable. - Problem is new. - Symptoms have improved. Historical: - Allergies: No known drug Allergies; - Home Meds: 1. levothyroxine 175 mcg Oral tab 1 tab once daily 2. Vitamin B-12 1,000 mcg Oral tab daily 3. multivitamin Oral tab 4. Plavix 75 mg Oral tab 1 tab once daily 5. quinapril 20 mg Oral tab 1 tab once daily 6. Vitamin D3 400 unit oral tab 7. aspirin 81 mg Oral TbEC 1 tab once daily 8. furosemide 40 mg Oral tab 1 tab once daily 9. metformin 500 mg Oral Tb24 1 tab once daily 10. docusate sodium 100 mg Oral cap 1 cap 2 times per day 11. loratadine 10 mg Oral TbDL 1 tab once daily 12. simvastatin 80 mg Oral tab daily 13. Aricept 10 mg Oral tab 1 tab once daily 14. citalopram 20 mg Oral tab 1 tab once daily 15. Fosamax 70 mg Oral tab 1 tab once wkly 16. Atrovent 18 mcg/actuation Inhl aero as needed - PMHx: Diabetes - NIDDM: controlled; CHF; COPD; Hypothyroidism; multiple lung nodules; hx monoclonal gammopathy; OA; osteopenia; Depression; Anxiety; colonic polyps; copnstipation; degenerative dementia; vitamin d deficiency; vitamin b 12 deficiency; - PSHx: hernia repair; Hysterectomy; - Social history: Smoking status: Patient states former smoker of tobacco. No barriers to communication noted, The patient speaks fluent Latvian, Speaks appropriately for age. - Family history: Not pertinent. - : The pt / caregiver states he / she is not on anticoagulants. Home medication list is obtained from the facility JUN. - Exposure Risk Screening:: None identified. Vital Signs: 04/10 21:11 BP 196 / 75; Pulse 108; Resp 16 S; Temp 98.9(O); Pulse Ox 91% on R/A; Weight 80.74 kg / gr2 178 lbs (R); Height 5 ft. 6 in. (167.64 cm) (R); Pain 4/10; 21:21 BP 154 / 63 (auto/); nn1 21:21 Pulse 100 MON; Pulse Ox 89% ; nn1 21:33 Pulse 82 MON; Pulse Ox 94% ; nn1 21:34 BP 144 / 60 (auto/); nn1 21:36 BP 128 / 60 (auto/); nn1 21:36 Pulse 84 MON; Pulse Ox 94% ; nn1 21:51 BP 129 / 66 (auto/); nn1 21:51 Pulse 80 MON; Pulse Ox 95% ; nn1 22:06 BP 121 / 58 (auto/); nn1 22:06 Pulse 88 MON; Pulse Ox 96% ; nn1 22:21 BP 124 / 59 (auto/); nn1 22:21 Pulse 96 MON; Pulse Ox 93% ; nn1 22:36 BP 128 / 57 (auto/); nn1 22:36 Pulse 84 MON; Pulse Ox 93% ; nn1 04/11 02:41 BP 110 / 56; ka4 04/10 21:11 Body Mass Index 28.73 (80.74 kg, 167.64 cm) gr2 MDM: 04/10 21:25 ECG WITH READING ER PHYS+CARDIAG ordered. EDMS 21:47 -Blood Culture (Adults Only), peripheral from different site, or from device/port/PICC bs6 etc. if present ordered. 21:47 Call Respiratory ordered. bs6 21:47 Conventional Mortgage Underwriter/Pulse Ox/q 15 min VS ordered. bs6 21:47 IV Saline Lock ordered. bs6 21:47 Oxygen at 4L/Min NC or Home dosage ordered. bs6 21:47 Rhythm Strip to chart ordered. bs6 21:47 Albuterol-Ipratropium 3 ml Inhalation once ordered. bs6 21:47 Albuterol 5 mg Nebulizer once ordered. bs6 21:48 Basic Metabolic Profile Ordered. EDMS 21:48 CBC with Diff Ordered. EDMS 21:48 Lactic Acid (Retana tube on ice) Ordered. EDMS 21:48 -Blood Culture Ordered. EDMS 21:48 -Influenza A&B Rapid Antigen - Nose Ordered. EDMS 21:49 Call Respiratory complete. ms18 21:54 -Blood Culture (Adults Only), peripheral from different site, or from device/port/PICC tmm1 etc. if present complete. 21:55 BLOOD CULTURES Ordered. EDMS 22:11 Financial registration complete. gb 22:13 [facility] Payment Agreement was scanned into [email or web address] and attached to record. gb 22:17 Basic Metabolic Profile Reviewed. cs11 22:17 CBC with Diff Reviewed. cs11 22:18 NS 0.9% 500 ml IV at bolus once ordered. bs6 22:20 BED REQUEST+ADM ordered. EDMS 22:44 Chest, 1 view Ordered. EDMS 22:50 cefUROXime 1.5 grams IV at calculated rate once over 30 mins; dilute in 50mL of NS or cs11 D5W ordered. 22:50 azithromycin 500 mg IVPB once over 1 hrs; dilute in 250mL of D5W or NS ordered. cs11 23:50 LACTIC ACID LEVEL, LACTATE Ordered. EDMS 23:50 CBC WITH DIFFERENTIAL Ordered. EDMS 23:50 BASIC METABOLIC PROFILE Ordered. EDMS 23:51 LEGIONELLA ANTIGEN URINE Ordered. EDMS 23:51 RESPIRATORY PANEL Ordered. EDMS 23:51 SPUTUM CULTURE AND GRAM STAIN Ordered. EDMS 01/01 00:45 Dexamethasone 6 mg IV at bolus once ordered. cs11 00:45 Levalbuterol 1.25 mg Nebulizer once ordered. cs11 00:45 Call Respiratory ordered. cs11 00:45 Call Respiratory complete. rs6 01:26 2 GRAM SODIUM DIET ordered. EDMS 01:26 LOW FAT LOW CHOLESTEROL DIET ordered. EDMS 01:26 THYROID STIMULATING HORMONE Ordered. EDMS 01:27 URINALYSIS Ordered. EDMS 01:27 URINE CULTURE Ordered. EDMS 01:32 ECHOCARD,DOPPLER/COLOR FLOW ordered. EDMS 01:33 HEMOGLOBIN A1C Ordered. EDMS 01:35 Admission / Observation Status ordered. EDMS 08:56 T-Sheet-- Draft Copy was scanned into [email or web address] and attached to record. [facility] Administered Medications: 04/10 22:00 Drug: Albuterol-Ipratropium 3 ml [ipratropium-albuterol 0.5 mg-3 mg(2.5 mg base)/3 mL jc3 nebulization soln (3 mL)] Route: Inhalation; 22:00 Drug: Albuterol 5 mg [albuterol sulfate 2.5 mg/0.5 mL solution for nebulization (1 mL)] jc3 Route: Nebulizer; 22:35 Drug: NS 0.9% 500 ml [sodium chloride 0.9 % intravenous solution] Route: IV; Rate: nn1 bolus; Site: left antecubital; 23:03 Drug: cefUROXime 1.5 grams [cefuroxime sodium 750 mg solution for injection] Route: IV; nn1 Rate: calculated rate; Infused Over: 30 mins; Site: left antecubital; 04/11 00:09 Drug: azithromycin 500 mg [azithromycin 500 mg intravenous solution] Route: IVPB; nn1 Infused Over: 1 hrs; Site: left antecubital; 01:03 Drug: Levalbuterol 1.25 mg [levalbuterol 1.25 mg/0.5 mL solution for nebulization (0.5 jc3 mL)] Route: Nebulizer; 01:07 Drug: Dexamethasone 6 mg [dexamethasone 4 mg/mL injection solution] Route: IV; Rate: af2 bolus; Site: left antecubital; Signatures: Dispatcher [employer] EDMS Bindu Simpson RN RN Erika Ballesteros, Reg Reg gb Thong Valerio, DO DO cs11 Kanwal Jerome, FLEET MECHANIC FLEET MECHANIC tmm1 Broderick Nesbitt RN RN Ирина Lord, DO DO bs6 Arabella Davenport RN RN ms18 Margaret Washington, FLEET MECHANIC FLEET MECHANIC rs6 Marilee Payne RN RN af2 Lakshmi Ortiz Joseph jc3 Stanley Brito RN nn1 The chart was reviewed and I authenticate all verbal orders and agree with the evaluation and treatment provided.Corrections: (The following items were deleted from the chart) 04/10 22:44 21:48 Chest, 2 view (PA\E\Lat)+XR ordered. EDMS EDMS 04/11 01:30 01:27 BLOOD CULTURES ordered. EDMS EDMS Attachments: 04/10 22:13 [facility] Payment Agreement gb 04/11 08:56 T-Sheet-- Draft Copy [facility] Chart Complete MTDD
--- NOTE | 2016-04-13 14:05 | EDDOCDS ---
Nurse's Notes [facility] Name: Patricia Sofia Age: 71 yrs Sex: Female : 1945 Arrival Date: 04/10/2016 Time: 21:10 Bed 5 Private MD: Cristian Man A. Diagnosis: Pneumonia, unspecified organism Presentation: 04/10 21:14 Presenting complaint: caregiver reports that patient has started with symptoms on jmb late afternoon with chills evening. Call placed to pcp, informed to allow to go for believing to be a bug. Breathing difficulty started yesterday afternoon with today getting worse. Adult Sepsis Screening: Patient's respiratory rate is less than 22. Systolic blood pressure is greater than 100. Patient has a qSOFA score of 0- Negative Sepsis Screen. Suicide/Homicide risk assessment- the patient denies having any suicidal and/or homicidal ideations and does not present with any other emotional, behavioral or mental health complaints. Status: Patient is not a respiratory services manager or dependent. Transition of care: patient was sent by [facility]. 21:14 Acuity: SARY Level 3 [facility] 21:14 Method Of Arrival: Wheelchair [facility] Triage Assessment: 21:23 General: Appears uncomfortable, Behavior is appropriate for age. Pain: Denies pain. [facility] Neurological: Level of Consciousness is awake, alert, obeys commands. Respiratory: Onset: The symptoms/episode began/occurred gradually, Airway is patent Respiratory effort is labored, Respiratory pattern is regular. Derm: Skin is pink, warm & dry. Musculoskeletal: Range of motion intact in all extremities. Historical: - Allergies: No known drug Allergies; - Home Meds: 1. levothyroxine 175 mcg Oral tab 1 tab once daily 2. Vitamin B-12 1,000 mcg Oral tab daily 3. multivitamin Oral tab 4. Plavix 75 mg Oral tab 1 tab once daily 5. quinapril 20 mg Oral tab 1 tab once daily 6. Vitamin D3 400 unit oral tab 7. aspirin 81 mg Oral TbEC 1 tab once daily 8. furosemide 40 mg Oral tab 1 tab once daily 9. metformin 500 mg Oral Tb24 1 tab once daily 10. docusate sodium 100 mg Oral cap 1 cap 2 times per day 11. loratadine 10 mg Oral TbDL 1 tab once daily 12. simvastatin 80 mg Oral tab daily 13. Aricept 10 mg Oral tab 1 tab once daily 14. citalopram 20 mg Oral tab 1 tab once daily 15. Fosamax 70 mg Oral tab 1 tab once wkly 16. Atrovent 18 mcg/actuation Inhl aero as needed - PMHx: Diabetes - NIDDM: controlled; CHF; COPD; Hypothyroidism; multiple lung nodules; hx monoclonal gammopathy; OA; osteopenia; Depression; Anxiety; colonic polyps; copnstipation; degenerative dementia; vitamin d deficiency; vitamin b 12 deficiency; - PSHx: hernia repair; Hysterectomy; - Social history: Smoking status: Patient states former smoker of tobacco. No barriers to communication noted, The patient speaks fluent Persian, Speaks appropriately for age. - Family history: Not pertinent. - : The pt / caregiver states he / she is not on anticoagulants. Home medication list is obtained from the facility JUN. - Exposure Risk Screening:: None identified. Screenin/01 01:50 Screening information is obtained from the patient. Fall risk: No risks identified. af2 Assistance ADL's: requires no assistance with activities of daily living. Abuse/DV Screen: The patient / caregiver reports he/she is: not in a situation that causes fear, pain or injury. Nutritional screening: No deficits noted. Advance Directives: Currently, there is no health care proxy. home support is adequate. Assessment: 04/10 21:32 General: Appears in no apparent distress, Behavior is appropriate for age, cooperative. kas2 Pain: Denies pain. Neurological: Level of Consciousness is awake, alert, obeys commands, Speech is normal, Facial symmetry appears normal. Cardiovascular: Capillary refill < 3 seconds Heart tones S1 S2 present Rhythm is sinus rhythm No ectopy. Respiratory: Airway is patent Respiratory effort is even, labored, Breath sounds with wheezes expiratory bilaterally. Reports shortness of breath cough that is productive, clear mucus production labored breathing. Derm: Skin is pink, warm & dry. 21:58 Reassessment: Patient appears in no apparent distress at this time. Cardiovascular: nn1 Edema is absent. Pulses are all present. Rhythm is sinus rhythm. Derm: Skin is pink, warm & dry. 23:04 General: Appears in no apparent distress, comfortable, Behavior is appropriate for age, nn1 cooperative. Respiratory: Airway is patent Respiratory effort is even. Derm: Skin is pink, warm & dry. 04/11 00:09 General: Appears in no apparent distress, comfortable, Behavior is appropriate for age, nn1 cooperative, Patient not coughing at this time, comfortable. Transferring care of patient to FILIPPO Hunt, . 00:37 General: assumed care of pt at this time. pt is without complaints.. Cardiovascular: af2 Rhythm is sinus rhythm No ectopy. Respiratory: Airway is patent Respiratory effort is even, labored, Breath sounds with crackles expiratory bilaterally. Breath sounds with wheezes expiratory bilaterally. Reports shortness of breath cough that is labored breathing. Derm: Skin is pink, warm & dry. 01:11 General: Admit nurse at bedside with pt, family remains at bedside. rr even and af2 unlabored. . Vital Signs: 04/10 21:11 BP 196 / 75; Pulse 108; Resp 16 S; Temp 98.9(O); Pulse Ox 91% on R/A; Weight 80.74 kg gr2 (R); Height 5 ft. 6 in. (167.64 cm) (R); Pain 4/10; 21:21 BP 154 / 63 (auto/); nn1 21:21 Pulse 100 MON; Pulse Ox 89% ; nn1 21:33 Pulse 82 MON; Pulse Ox 94% ; nn1 21:34 BP 144 / 60 (auto/); nn1 21:36 BP 128 / 60 (auto/); nn1 21:36 Pulse 84 MON; Pulse Ox 94% ; nn1 21:51 BP 129 / 66 (auto/); nn1 21:51 Pulse 80 MON; Pulse Ox 95% ; nn1 22:06 BP 121 / 58 (auto/); nn1 22:06 Pulse 88 MON; Pulse Ox 96% ; nn1 22:21 BP 124 / 59 (auto/); nn1 22:21 Pulse 96 MON; Pulse Ox 93% ; nn1 22:36 BP 128 / 57 (auto/); nn1 22:36 Pulse 84 MON; Pulse Ox 93% ; nn1 04/11 02:41 BP 110 / 56; ka4 04/10 21:11 Body Mass Index 28.73 (80.74 kg, 167.64 cm) gr2 Vitals: 04/10 21:11 Log In Time: April 10, 2016 at 21:11. RN notified that patient meets Red Flag gr2 criteria. ED Course: 21:10 Patient visited by Lawanda Yousif. gr2 21:10 Patient moved to Waiting gr2 21:11 Cristian Man is Private Physician. gr2 21:16 Triage Initiated jmb 21:23 Patient visited by Lawanda Yousif. gr2 21:23 Patient moved to 5 sls1 21:24 Ирина Rojas DO is PHCP. bs6 21:24 Thong Valerio DO is Attending Physician. bs6 21:27 Patient visited by Ирина Rojas DO. bs6 21:28 Patient visited by Ирина Rojas DO. bs6 21:34 Inserted saline lock: 20 gauge in left antecubital area and blood collected. The kas2 patient tolerated the procedure well. O2 via nasal cannula \T\ 3L/min. 21:36 Patient visited by Margaret Washington PCA. rs6 21:36 EKG done. (by ED staff). Reviewed by Ирина Rojas DO. rs6 21:49 Lactic Acid (Retana tube on ice) Sent. ms18 21:49 -Blood Culture Sent. ms18 21:49 Basic Metabolic Profile Sent. ms18 21:49 CBC with Diff Sent. ms18 21:58 -Influenza A&B Rapid Antigen - Nose Sent. nn1 22:13 [facility] Payment Agreement was scanned into [email or web address] and attached to record. gb 22:16 Notified attending ED physician of Critical lab value. sls1 22:17 Patient name changed from Patricia\S\\S\[place]\S\ to Patricia\S\M\S\[place]. EDMS 22:29 Patient visited by Stanley Brito RN. nn1 23:11 Patient visited by Stanley Brito RN. nn1 23:24 Terrell Valencia MD is Hospitalizing Provider. bs6 04/11 00:38 Patient visited by Marilee Pyane RN. af2 01:12 Patient visited by Marilee Payne RN. af2 01:51 The patient / caregiver is instructed regarding the plan of care and ED course. Patient af2 has correct armband on for positive identification. Placed in gown. 01:51 No procedures done that require assistance. af2 01:53 Patient visited by Marilee Payne RN. af2 02:41 Patient visited by Shantel Sheehan LPN. ka4 08:56 T-Sheet-- Draft Copy was scanned into [email or web address] and attached to record. [facility] Administered Medications: 04/10 22:00 Drug: Albuterol-Ipratropium 3 ml [ipratropium-albuterol 0.5 mg-3 mg(2.5 mg base)/3 mL jc3 nebulization soln (3 mL)] Route: Inhalation; 22:00 Drug: Albuterol 5 mg [albuterol sulfate 2.5 mg/0.5 mL solution for nebulization (1 mL)] jc3 Route: Nebulizer; 22:35 Drug: NS 0.9% 500 ml [sodium chloride 0.9 % intravenous solution] Route: IV; Rate: nn1 bolus; Site: left antecubital; 23:03 Drug: cefUROXime 1.5 grams [cefuroxime sodium 750 mg solution for injection] Route: IV; nn1 Rate: calculated rate; Infused Over: 30 mins; Site: left antecubital; 04/11 00:09 Drug: azithromycin 500 mg [azithromycin 500 mg intravenous solution] Route: IVPB; nn1 Infused Over: 1 hrs; Site: left antecubital; 01:03 Drug: Levalbuterol 1.25 mg [levalbuterol 1.25 mg/0.5 mL solution for nebulization (0.5 jc3 mL)] Route: Nebulizer; 01:07 Drug: Dexamethasone 6 mg [dexamethasone 4 mg/mL injection solution] Route: IV; Rate: af2 bolus; Site: left antecubital; RT: 04/10 22:00 Initial Med Neb Given as ordered. O2 via nasal cannula \T\ 3L/min. Respiratory: Breath jc3 sounds are diminished bilaterally. Breath sounds with wheezes in right upper lobe and right middle lobe at inspiration. 22:07 Respiratory: Breath sounds are diminished Breath sounds with wheezes bilaterally. jc3 04/11 01:03 Subsequent Med Neb Given as ordered. Respiratory: Breath sounds are diminished Breath jc3 sounds with wheezes bilaterally. at expiration. Order Results: Lab Order: Basic Metabolic Profile; SPEC'M 04/10/16 21:12 Test: GLUCOSE, FASTING; Value: 218; Range: 83-110; Abnormal: Above high normal; Units: MG/DL; Status: F Test: BLOOD UREA NITROGEN; Value: 33; Range: 7-18; Abnormal: Above high normal; Units: MG/DL; Status: F Test: CREATININE FOR GFR; Value: 1.44; Range: 0.55-1.02; Abnormal: Above high normal; Units: MG/DL; Status: F Test: GLOMERULAR FILTRATION RATE; Value: 38.0; Range: >39; Abnormal: Below low normal; Status: F Test: SODIUM LEVEL; Value: 138; Range: 136-145; Units: MEQ/L; Status: F Test: POTASSIUM SERUM; Value: 4.0; Range: 3.5-5.1; Units: MEQ/L; Status: F Test: CHLORIDE LEVEL; Value: 105; Range: 98-107; Units: MEQ/L; Status: F Test: CARBON DIOXIDE LEVEL; Value: 24; Range: 21-32; Units: MEQ/L; Status: F Test: ANION GAP; Value: 9; Range: 8-16; Units: MEQ/L; Status: F Test: CALCIUM LEVEL; Value: 8.6; Range: 8.8-10.2; Abnormal: Below low normal; Units: MG/DL; Status: F Test Note: ; Units are mL/min/1.73 m2 Chronic Kidney Disease Staging per NKF: Stage I & II GFR >=60 Normal to Mildly Decreased Stage III GFR 30-59 Moderately Decreased Stage IV GFR 15-29 Severely Decreased Stage V GFR <15 Very Little GFR Left ESRD GFR <15 on BUTTER WRAPPER Lab Order: CBC with Diff; SPEC'M 04/10/16 21:12 Test: WHITE BLOOD COUNT; Value: 5.3; Range: 4.0-10.0; Units: K/mm3; Status: F Test: RED BLOOD COUNT; Value: 4.08; Range: 4.00-5.40; Units: M/mm3; Status: F Test: HEMOGLOBIN; Value: 11.9; Range: 12.0-16.0; Abnormal: Below low normal; Units: g/dl; Status: F Test: HEMATOCRIT; Value: 36.1; Range: 36.0-47.0; Units: %; Status: F Test: MEAN CORPUSCULAR VOLUME; Value: 88.6; Range: 80.0-96.0; Units: fl; Status: F Test: MEAN CORPUSCULAR HEMOGLOBIN; Value: 29.1; Range: 27.0-33.0; Units: pg; Status: F Test: MEAN CORPUSCULAR HGB CONC; Value: 32.8; Range: 32.0-36.5; Units: g/dl; Status: F Test: RED CELL DISTRIBUTION WIDTH; Value: 13.6; Range: 11.5-14.5; Units: %; Status: F Test: PLATELET COUNT, AUTOMATED; Value: 191; Range: 150-450; Units: k/mm3; Status: F Test: NEUTROPHILS %; Value: 59.0; Range: 36.0-66.0; Units: %; Status: F Test: LYMPH %; Value: 28.5; Range: 24.0-44.0; Units: %; Status: F Test: MONO %; Value: 7.7; Range: 0.0-5.0; Abnormal: Above high normal; Units: %; Status: F Test: EOS %; Value: 0.2; Range: 0.0-3.0; Units: %; Status: F Test: BASO %; Value: 1.3; Range: 0.0-1.0; Abnormal: Above high normal; Units: %; Status: F Test: LARGE UNSTAINED CELL %; Value: 3.3; Range: 0.0-4.0; Units: %; Status: F Test: NEUTROPHILS #; Value: 3.2; Range: 1.8-7.7; Units: K/mm3; Status: F Test: LYMPH #; Value: 1.7; Range: 1.5-4.5; Units: K/mm3; Status: F Test: MONO #; Value: 0.4; Range: 0.0-0.8; Units: K/mm3; Status: F Test: EOS #; Value: 0.0; Range: 0.0-0.50; Units: K/mm3; Status: F Test: BASO #; Value: 0.1; Range: 0.0-0.2; Units: K/mm3; Status: F Test: LARGE UNSTAINED CELL #; Value: 0.2; Range: 0.0-0.4; Units: K/mm3; Status: F Lab Order: Lactic Acid (Retana tube on ice); SPEC'M 04/10/16 21:12 Test: LACTIC ACID LEVEL, LACTATE; Value: 3.5; Range: 0.4-2.0; Abnormal: Above upper panic limits; Units: MMOL/L; Status: F Lab Order: -Influenza A&B Rapid Antigen - Nose; SPEC'M 04/10/16 21:54 Test: INFLUENZA A RAPID SCR by ICA; Value: INFLUENZA A RESULTS NEGATIVE; Status: F Test: INFLUENZA A RAPID SCR by ICA; Value: Comments:; Status: F Test: INFLUENZA B RAPID SCR by ICA; Value: INFLUENZA B RESULTS NEGATIVE; Status: F Test Note: ; The Influenza test is a direct rapid immunoassay for the qualitative detection of Influenza viral antigen. Cell culture (Viral Culture) testing should be considered to confirm NEGATIVE results and to assist in detecting other viruses that can provide similar clinical symptoms. Please contact the lab within 24 hours ([phone] if confirmatory testing is desired. Outcome: 04/10 23:26 Decision to Hospitalize by Provider. bs6 04/11 01:51 Discharge Assessment: patient administered narcotics - no. The following High Risk af2 Discharge criteria are identified: None. Admitted to Med/Surg accompanied by tech, via stretcher, with chart. Condition: stable. No special radiology studies were completed. Property :Personal belongings accompany Pt. 02:43 Patient left the ED. af2 Signatures: Dispatcher [employer] EDNH Erika Whitaker, Reg Reg TobyKevin brooke jc3 Linette Magaña RN RN sls1 Lawanda Yousif gr2 Broderick Nesbitt RN RN Shantel Russo LPN LPN ka4 Ирина Rojas DO DO bs6 Arabella Davenport RN RN ms18 Margaret Washington, MACHINE LOADER MACHINE LOADER rs6 Marilee PayneRN RN af2 Stanley Brito RN RN nn1 Tesha Davenport RN RN keily2 Lakshmi Ortiz Corrections: (The following items were deleted from the chart) 04/10 22:07 22:00 O2 via nasal cannula \T\ 2L/min jc3 jc3 Chart Complete MTDD
[2016-04-13 14:32] VITALS: BP 149/67
--- NOTE | 2016-04-13 15:33 | IPN ---
DATE: 04/13/2016 Patient is seen and examined. Reported mild cough. Denies any chest pain, pressure, or discomfort. Denies any fevers or chills. Reported respirations much improved. VITAL SIGNS: Temperature 97.3, pulse 76, respirations 16, blood pressure 149/67, pulse oximetry 92% on room air. LABORATORY DATA: WBC 5.8, hemoglobin and hematocrit 10.3/32.3, platelets 190. Chemistry: Sodium 143, potassium 4.3, chloride 108, bicarbonate 28, BUN 28, creatinine 1.05. PHYSICAL EXAMINATION: GENERAL: Patient alert and oriented times three, in no acute distress. Mild cough. HEENT: Normocephalic, atraumatic. PULMONARY: No rhonchi. Minimal expiratory wheeze. CARDIAC: Regular rate and rhythm. Normal S1, S2. No murmurs detected. ABDOMEN: Soft, nontender, nondistended. EXTREMITIES: No edema bilateral lower extremities. ASSESSMENT AND PLAN: This is a 71-year-old female patient with underlying medical history of obesity, congestive heart failure with diastolic dysfunction, type 2 diabetes, hypothyroidism, multiple lung nodules, osteoarthritis, osteopenia, depression, anxiety, dementia, presented with shortness of breath, admitted for acute chronic obstructive pulmonary disease (COPD) exacerbation with secondary community-acquired bacterial pneumonia and also possible superimposed viral bronchitis. PROBLEMS: 1. Acute chronic obstructive pulmonary disease (COPD) exacerbation secondary to bronchitis versus community-acquired bacterial pneumonia. Rocephin and azithromycin. Followup cultures. Xrays appreciated. Oxygen supplementation. 2. Hypoxia. Oxygen supplementation. Taper steroids. Nebulizer treatment. Advair inhaler. 3. Coronary artery disease. Continue aspirin, Plavix, statin. Monitor blood pressure. 4. History of congestive heart failure with diastolic dysfunction. Echo appreciated. Patient currently euvolemic. Continue home dose Lasix. Strict intake and output. 5. Hypothyroidism. Thyroid stimulating hormone (TSH) depressed. Relatively normal T4. Synthroid dose has been decreased. Outpatient followup as needed. 6. Type 2 diabetes with hyperglycemia secondary to steroid. Insulin as per protocol. Followup finger sticks. 7. Dementia. Continue home medications. 8. Hypertension. Angiotensin-converting enzyme (MATILDA) inhibitor has been on hold given mildly elevated creatinine with hyperkalemia. Continue Lasix. Monitor blood pressure, adjust blood pressure medication. 9. Deep venous thrombosis (DVT) prophylaxis. Heparin subcutaneous. DISPOSITION PLANNING: Steroid taper, physical therapy, need to assess oxygen needs at home, and clinical improvement.
[2016-04-13] MEDS: CitaloPRAM (CeleXA) 20 MG TAB PO SCH (21:43)
[2016-04-13] MEDS: SIMVASTATIN 40 MG TAB PO SCH (21:43)
[2016-04-13] MEDS: DONEPEZIL 5 MG TAB PO SCH (21:43)
[2016-04-13 22:00] VITALS: BP 164/78
[2016-04-13] MEDS: AZITHROMYCIN 500 MG, VIAL MATE ADAPTER 1 EACH in D5W 250 ML IV SCH (23:45)
[2016-04-14] MEDS: cefTRIAXone SOD 2 GM in D5W MINI-BAG PLUS 50 ML IV SCH (01:12)
[2016-04-14] MEDS: IPRATROPIUM 0.5MG/ALBUTEROL 2.5MG INH SOL UD 3ML (DUONEB)(J7620) NEB SCH ×3 (04:12→11:33)
[2016-04-14 05:51] LABS: MEAN CORPUSCULAR HGB CONC 31.6 g/dl (32.0-36.5); MEAN CORPUSCULAR VOLUME 91.7 fl (80.0-96.0); RED CELL DISTRIBUTION WIDTH 13.5 % (11.5-14.5); WHITE BLOOD COUNT 8.6 K/mm3 (4.0-10.0)
[2016-04-14 06:00] VITALS: BP 138/65
[2016-04-14] MEDS: LEVOTHYROXINE 0.15 MG TAB (150 MCG) PO SCH (06:00)
[2016-04-14] MEDS: HEPARIN SOD (PORCINE) 5000 UNITS/ML VIAL SC SCH (06:00)
[2016-04-14 06:04] LABS: CALCIUM LEVEL 9.3 MG/DL (8.8-10.2); CREATININE FOR GFR 1.13 MG/DL (0.55-1.02); GLOMERULAR FILTRATION RATE 50.2 (>39); POTASSIUM SERUM 4.8 MEQ/L (3.5-5.1)
[2016-04-14] MEDS: ADVAIR DISKUS 500/50 INH PWD INH SCH (07:41)
[2016-04-14] MEDS: HumaLOG INSULIN (NovoLOG) PER UNIT SC SCH ×2 (08:01→12:00)
[2016-04-14] MEDS: MULTIVITAMINS/MINERALS THERAP 1 TAB PO SCH (08:02)
[2016-04-14] MEDS: CLOPIDOGREL 75 MG TAB PO SCH (08:02)
[2016-04-14] MEDS: LORATADINE 10 MG TAB PO SCH (08:02)
[2016-04-14] MEDS: FUROSEMIDE 40 MG TAB PO SCH (08:02)
[2016-04-14] MEDS: DOCUSATE SODIUM 100 MG CAP PO SCH (08:02)
[2016-04-14] MEDS: CYANOCOBALAMIN 500 MCG TAB PO SCH (08:02)
[2016-04-14] MEDS: ASPIRIN 81 MG ENTERIC TAB PO SCH (08:02)
[2016-04-14] MEDS: VITAMIN D (CHOLECALCIFEROL) 400 INTERNATIONAL UNITS TAB PO SCH (08:02)
[2016-04-14] MEDS: NAMENDA 28 MG PO SCH (08:05)
[2016-04-14 09:53] VITALS: BP 124/69
[2016-04-14] MEDS: methylPREDNISolone INJ 40 MG/1 ML VIAL (J2920) IV SCH (09:53)
[2016-04-14] MEDS: QUINAPRIL 20 MG TAB PO SCH (09:53)
[2016-04-14] MEDS ORDERED: LEVO150T7 PO (11:02)
[2016-04-14] MEDS ORDERED: COMPMIS43 XX (11:02)
[2016-04-14] MEDS ORDERED: IPRASOL4 IN (11:02)
[2016-04-14] MEDS ORDERED: ADV500INH INH (11:02)
[2016-04-14] MEDS ORDERED: CEFD1CAP8 PO (11:02)
[2016-04-14] MEDS ORDERED: PRED10TA PO (11:02)
[2016-04-14] MEDS ORDERED: FULLMIS XX (11:39)
--- NOTE | 2016-04-14 15:38 | DSES ---
DATE OF ADMISSION: 04/11/2016 DATE OF DISCHARGE: 04/14/2016 PRIMARY CARE PROVIDER: Dr. Cristian Man FINAL DIAGNOSES: 1. Acute chronic obstructive pulmonary disease (COPD) exacerbation secondary to community-acquired bacterial pneumonia with also underlying viral bronchitis secondary to Human metapneumovirus pneumonia likely secondary to Morganella morganii. 2. Coronary artery disease. 3. Hypoxia. 4. History of congestive heart failure with diastolic dysfunction. 5. Hypothyroidism. 6. Type 2 diabetes. 7. Dementia. 8. Hypertension. HISTORY OF PRESENT ILLNESS: This is a 71-year-old female patient with underlying medical history of obesity, [id number] type 2 diabetes, congestive heart failure, chronic obstructive pulmonary disease (COPD), hypothyroidism, multiple lung nodules, osteoarthritis, osteopenia, depression, anxiety, dementia, vitamin D and vitamin B12 deficiency who presented with shortness of breath and productive cough for three days of duration. The patient was also having subjective chills as well as progressively getting worse, worsening cough with productive yellow sputum. No blood in the sputum. The patient did have cold-like symptoms and sore throat, joint pain as well as runny nose. No sick contact. No recent travel. No fevers until she arrived in the emergency department (ED) where she was found to have a temperature of 104. She also desaturated to 91% on room air. Nebulizer treatment and oxygen supplementation provided in the ED. Denies any chest pain or palpitations. HOSPITAL COURSE: The patient was admitted to the hospital, given IV steroid, antibiotics, respiratory panel sent as well as echocardiogram was done to assess ejection fraction. Blood pressure medication adjusted based on acute kidney injury (SEBASTIÁN). Lactic acid was repeated. Sputum culture appreciated. Blood culture appreciated. The patient's antibiotics were adjusted. The patient is currently tolerating oral, able to ambulate. Physical therapy evaluation was done. Deep vein thrombosis (DVT) prophylaxis provided. The patient's symptoms progressively improved and currently is tolerating oral with minimal couch, comfortable and ready for discharge for further care as outpatient. Steroids were tapered. VITAL SIGNS: Temperature 97.6, pulse 68, respiratory rate 18, blood pressure 124/69, pulse oximetry 93% on room air. LABORATORY DATA: WBC 8.6, hemoglobin and hematocrit 10/31.6, platelets 209. Chemistry: Sodium 139, potassium 4.8, chloride 103, bicarbonate 27, BUN 29, creatinine 1.13, C-reactive protein initial 5.74, current 1.23. DISCHARGE MEDICATIONS: - DuoNebs inhalation four times a day as needed - cefdinir 300 mg by mouth twice a day for five more days - Levaquin dosage adjusted to 0.15 mg by mouth daily, outpatient followup with thyroid function - prednisone taper as directed 40 mg daily for two days, followed by 30 mg daily for two days, followed by 20 mg daily for two days, followed by 10 mg daily for two days - Advair inhaler 550 mcg inhalation twice a day The patient's home medication that were continued include: - Fosamax 70 mg by mouth once a week is continued. - aspirin 81 mg by mouth daily - vitamin D 400 units by mouth daily - citalopram 25 mg by mouth at bedtime - Plavix 75 mg by mouth daily - vitamin B12 1000 mcg by mouth daily - Colace 100 mg by mouth twice a day - donepezil 10 mg by mouth at bedtime - Lasix 40 mg by mouth daily - Atrovent 17 mcg inhalation every six hours as needed - loratadine 10 mg by mouth daily - Namenda 20 mg by mouth daily - metformin 500 mg by mouth daily - multivitamin one tablet by mouth daily - Quinapril 20 mg by mouth daily - Zocor 80 mg by mouth at bedtime DISCHARGE INSTRUCTIONS: The patient is instructed to followup with primary care provider in seven days and return to the hospital if symptoms worsen.
== END 2016-04-14 12:35 | disposition home health service (06) | DRG 190 ==
LOC: M ED 21:10 → M ED INP 04-11 01:32 → M MSPAV 04-11 02:48
PROVIDERS: ADMIT Internal Medicine; ATTEND Hospitalist
DX: J44.1 Chronic obstructive pulmonary disease with (acute) exacerbation (principal); J12.3 Human metapneumovirus pneumonia; I50.32 Chronic diastolic (congestive) heart failure; E87.2 Acidosis; E66.9 Obesity, unspecified; E11.9 Type 2 diabetes mellitus without complications; J20.8 Acute bronchitis due to other specified organisms; J44.0 Chronic obstructive pulmonary disease with (acute) lower respiratory infection; E03.9 Hypothyroidism, unspecified; R91.8 Other nonspecific abnormal finding of lung field; M19.90 Unspecified osteoarthritis, unspecified site; I11.0 Hypertensive heart disease with heart failure; M85.80 Other specified disorders of bone density and structure, unspecified site; F32.9 Major depressive disorder, single episode, unspecified; I27.2 Other secondary pulmonary hypertension; I25.10 Atherosclerotic heart disease of native coronary artery without angina pectoris; R09.02 Hypoxemia; F41.9 Anxiety disorder, unspecified; I36.1 Nonrheumatic tricuspid (valve) insufficiency; F03.90 Unspecified dementia, unspecified severity, without behavioral disturbance, psychotic disturbance, mood disturbance, and anxiety; E55.9 Vitamin D deficiency, unspecified; E53.8 Deficiency of other specified B group vitamins; Z79.82 Long term (current) use of aspirin; Z79.84 Long term (current) use of oral hypoglycemic drugs; Z79.899 Other long term (current) drug therapy

== ENCOUNTER → 2016-07-02 | Outpatient (CLI) | payer MEDICARE, MEDICAID ==
[~2016-07-02] MED LIST changes: +ADV500INH INH; +ASPI81TA13 PO; +ATRO0.063 INH; +CEFD1CAP8 PO; +CITA20TA4 PO; +COLA100C PO; +COMPMIS43 XX; +DONETAB6 PO; +FOSA70TA PO; +FULLMIS XX; +FURO40TA2 PO; +IPRASOL4 IN; +LEVO150T7 PO; +LORA10TA2 PO; +METF500T PO; +NAME28CA PO; +PLAV75TA38 PO; +PRED10TA PO; +QUIN20TA7 PO; +SIMV80TA PO; +SYNT175T2 PO; +VITA10002 PO; +VITA400C29 PO; +VITMTA PO
--- NOTE | 2016-07-02 15:15 | REPMRS ---
Patient History The patient states she has not had a clinical breast exam in over a year. Digital Woman Screen Mammo: July 02, 2016 - Exam #: [id number] Bilateral CC and MLO view(s) were taken. Technologist: Sandy Mcdonough, Technologist Prior study comparison: June 17, 2015, digital woman screen mammo performed at [facility]. June 21, 2014, digital woman screen mammo performed at [facility] to [facility]. FINDINGS: There are scattered fibroglandular densities. There has been no change in the appearance of the mammogram from the prior studies. There is a mild amount of residual fibroglandular tissue which is fairly symmetric. There is no interval development of dominant mass, architectural distortion, or clustered microcalcification suggestive of malignancy. ASSESSMENT: BI-RADS/ACR category 1 mammogram. Negative. Recommendation Routine screening mammogram in 1 year (for women over age 40). This mammogram was interpreted with the aid of an FDA-approved computer-aided dectection system. Electronically Signed By: Tyler Retana MD 07/02/16 [id number]
== END ==
LOC: M WHC 14:20
PROVIDERS: ATTEND Family Medicine
DX: Z12.31 Encounter for screening mammogram for malignant neoplasm of breast (principal)

== ENCOUNTER → 2017-03-10 | Outpatient (CLI) | payer MEDICARE, MEDICAID ==
[~2017-03-10] MED LIST changes: -ASPI81TA13 PO; +ASPI81TA24 PO; -COLA100C PO; +COLA100C5 PO; -METF500T PO; +METF500T13 PO; +PLAV1TAB2 PO; -PLAV75TA38 PO; -PRED10TA PO; +PRED10TA2 PO; +QUIN20TA17 PO; -QUIN20TA7 PO; +VITA-110 PO; -VITA400C29 PO
--- NOTE | 2017-03-11 13:42 | DEXA ---
AP SPINE L1 - L4 1.169 -0.2 1.5 LT FEMUR TOTAL 0.989 -0.1 1.5 RT FEMUR TOTAL 1.071 0.5 2.2 TOTAL BODY TOTAL OTHER COMMENTS: Normal bone densitometry of the spine. There is low bone density of the hips. The density of the spine has increased 16.4% since the initial exam on 2000. Spine density has increased 4.1% since the most recent exam on 01/05/2016. The density of the left hip has decreased 8.0% since the initial exam on 2000. The density of the left hip has decreased 4.9% since the most recent exam on . The density of the right hip has increased 2.8% since the initial exam on 2000. The density of the right hip has increased 3.5% since the most recent exam on . FOLLOW-UP: Recommendation for the next bone density exam: 2 years. JANI
== END ==
LOC: M WHC 11:30
PROVIDERS: ATTEND Family Medicine
DX: M85.9 Disorder of bone density and structure, unspecified (principal)

== ENCOUNTER → 2017-04-13 | Outpatient (CLI) | payer MEDICARE, MEDICAID | LOC: M CARPUL 14:02 | DX: J44.9 Chronic obstructive pulmonary disease, unspecified (principal) | CPT/HCPCS: 94060 ==

== ENCOUNTER → 2017-06-09 | Outpatient (CLI) | payer MEDICARE, MEDICAID | LOC: M ADAMS 10:49 | DX: R05 Cough (principal); I51.7 Cardiomegaly; J98.4 Other disorders of lung | CPT/HCPCS: 71046 ==

== ENCOUNTER → 2017-06-22 | Outpatient (CLI) | payer MEDICARE, MEDICAID | LOC: M ADAMS 09:38 | DX: R05 Cough (principal) | CPT/HCPCS: 71046 ==

== ENCOUNTER → 2017-08-10 | Outpatient (CLI) | payer MEDICARE, MEDICAID | LOC: M RAD 11:13 | DX: J44.9 Chronic obstructive pulmonary disease, unspecified (principal) | CPT/HCPCS: 71250 ==

== ENCOUNTER → 2017-09-14 | Outpatient (REF) | payer MEDICARE, MEDICAID ==
[2017-09-14 15:26] LABS: BASO % 0.6 % (0.0-1.0); EOS # 0.1 10^3/uL (0.0-0.50); HEMATOCRIT 35.8 % (36.0-47.0); HEMOGLOBIN 11.2 g/dl (12.0-15.5); IMMATURE GRANULOCYTE % 0.3 % (0-3.0); LYMPH # 2.3 10^3/uL (1.5-4.5); LYMPH % 35.6 % (24.0-44.0); MEAN CORPUSCULAR HEMOGLOBIN 29.3 pg (27.0-33.0); MEAN CORPUSCULAR HGB CONC 31.3 g/dl (32.0-36.5); MEAN CORPUSCULAR VOLUME 93.7 fl (80.0-96.0); MONO # 0.7 10^3/uL (0.0-0.8); NEUTROPHILS # 3.2 10^3/uL (1.8-7.7); NEUTROPHILS % 50.5 % (36.0-66.0); PLATELET COUNT, AUTOMATED 212 10^3/uL (150-450); RED BLOOD COUNT 3.82 10^6/uL (4.00-5.40); RED CELL DISTRIBUTION WIDTH 13.3 % (11.5-14.5); WHITE BLOOD COUNT 6.4 10^3/uL (4.0-10.0)
[2017-09-14 15:44] LABS: ESTIMATED AVERAGE GLUCOSE 151 MG/DL (60-110); HEMOGLOBIN A1c 6.9 %
[2017-09-14 15:46] LABS: ALBUMIN 3.4 GM/DL (3.2-5.2); ALBUMIN/GLOBULIN RATIO 1.13 (1.00-1.93); ALKALINE PHOSPHATASE 80 U/L (45-117); ALT/SGPT 21 U/L (12-78); ANION GAP 7 MEQ/L (8-16); AST/SGOT 10 U/L (7-37); BILIRUBIN,TOTAL 0.2 MG/DL (0.2-1.0); BLOOD UREA NITROGEN 37 MG/DL (7-18); CALCIUM LEVEL 9.4 MG/DL (8.8-10.2); CARBON DIOXIDE LEVEL 28 MEQ/L (21-32); CHLORIDE LEVEL 109 MEQ/L (98-107); CREATININE FOR GFR 1.22 MG/DL (0.55-1.30); FREE T3 2.5 PG/ML (2.2-4.0); GLOMERULAR FILTRATION RATE 45.9 (>39); GLUCOSE, FASTING 135 MG/DL (70-100); SODIUM LEVEL 144 MEQ/L (136-145); THYROID STIMULATING HORMONE 0.073 uIU/ML (0.358-3.740); TOTAL PROTEIN 6.4 GM/DL (6.4-8.2)
== END ==
LOC: M LABDRWAD 15:08
DX: E11.9 Type 2 diabetes mellitus without complications (principal)
CPT/HCPCS: 84443

== ENCOUNTER → 2017-11-02 | Outpatient (REF) | payer MEDICARE, MEDICAID ==
[2017-11-02 17:44] LABS: APPEARANCE, URINE CLOUDY (CLEAR); BACTERIA, URINE AUTO NEGATIVE (NEGATIVE); BILIRUBIN, URINE AUTO NEGATIVE (NEGATIVE); BLOOD, URINE BLOOD NEGATIVE (NEGATIVE); COLOR, URINE YELLOW (YELLOW); GLUCOSE, URINE (UA) AUTO NEGATIVE (NEGATIVE); KETONE, URINE AUTO NEGATIVE (NEGATIVE); LEUKOCYTE ESTERASE, URINE AUTO 3+ (NEGATIVE); NITRITE, URINE AUTO NEGATIVE (NEGATIVE); PROTEIN, URINE AUTO NEGATIVE (NEGATIVE); RBC, URINE AUTO 13 /HPF (0-3); SQUAMOUS EPITHELIAL CELL UR AU 0 /HPF (0-6); UROBILINOGEN, URINE AUTO 0.2 mg/dL (0.0-2.0); WBC, URINE AUTO TNTC /HPF (0-3)
== END ==
LOC: M LAB REF 17:03
DX: N39.46 Mixed incontinence (principal)
CPT/HCPCS: 81001

== ENCOUNTER → 2017-12-21 | Outpatient (CLI) | payer MEDICARE, MEDICAID | LOC: M WHC 14:19 | DX: Z12.31 Encounter for screening mammogram for malignant neoplasm of breast (principal) | CPT/HCPCS: 77067 ==

== ENCOUNTER → 2018-01-19 | Outpatient (REF) | payer MEDICARE, MEDICAID ==
[2018-01-19 10:43] LABS: ESTIMATED AVERAGE GLUCOSE 143 MG/DL (60-110); HEMOGLOBIN A1c 6.6 %
[2018-01-19 11:03] LABS: CHOLESTEROL LEVEL 153 MG/DL (<200); CHOLESTEROL RISK RATIO 2.318 (<5); FREE T4 1.18 NG/DL (0.76-1.46); HDL CHOLESTEROL 66 MG/DL (>40); LDL CHOLESTEROL 51 MG/DL (<100); NON-HDL-C 87 MG/DL; THYROID STIMULATING HORMONE 0.887 uIU/ML (0.358-3.740); TRIGLYCERIDES LEVEL 179 MG/DL (<150)
[2018-01-19 11:06] LABS: CREATININE, URINE 26.9 MG/DL; MALB URINE SIEMENS 14.1 MG/L
[2018-01-19 11:09] LABS: MAU/CREAT RATIO 52.4 MCG/MG (0.0-30.0)
== END ==
LOC: SKLABADC 09:00
DX: E11.9 Type 2 diabetes mellitus without complications (principal)
CPT/HCPCS: 84443

== ENCOUNTER → 2018-08-14 | Outpatient (REF) | payer MEDICARE, MEDICAID ==
[~2018-08-14] MED LIST changes: -/ADVA50050; -/PANT40TA; -/QUIN20TA; +ACCU1TAB2; +ADVA1AER2; -CITA20TA4 PO; +CITA20TA6 PO; +IPRA0.00 IN; -IPRASOL4 IN; +LORA-243 PO; -LORA10TA2 PO; +PROT1TAB2; +QUIN1TAB3 PO; -QUIN20TA17 PO; -SIMV80TA PO; +SIMV80TA13 PO
[2018-08-14 18:13] LABS: APPEARANCE, URINE CLEAR (CLEAR); BACTERIA, URINE AUTO NEGATIVE (NEGATIVE); BILIRUBIN, URINE AUTO NEGATIVE (NEGATIVE); BLOOD, URINE BLOOD NEGATIVE (NEGATIVE); COLOR, URINE YELLOW (YELLOW); GLUCOSE, URINE (UA) AUTO NEGATIVE (NEGATIVE); KETONE, URINE AUTO NEGATIVE (NEGATIVE); LEUKOCYTE ESTERASE, URINE AUTO NEGATIVE (NEGATIVE); MUCUS, URINE SMALL (NEGATIVE); NITRITE, URINE AUTO NEGATIVE (NEGATIVE); PROTEIN, URINE AUTO NEGATIVE (NEGATIVE); RBC, URINE AUTO 0 /HPF (0-3); SPECIFIC GRAVITY URINE AUTO 1.011 (1.002-1.035); SQUAMOUS EPITHELIAL CELL UR AU 0 /HPF (0-6); UROBILINOGEN, URINE AUTO 0.2 mg/dL (0.0-2.0); WBC, URINE AUTO 2 /HPF (0-3)
== END ==
LOC: M LAB REF 16:31
PROVIDERS: ATTEND Nurse Practitioner Women's Health
DX: N39.46 Mixed incontinence (principal)

== ENCOUNTER → 2018-09-05 | Outpatient (CLI) | payer MEDICARE, MEDICAID ==
--- NOTE | 2018-09-08 11:05 | SLEEPHOME ---
DATE OF STUDY: 09/05/2018 ORDERED BY: Dr. Saravia Diagnostic home sleep testing was performed due to concern for the obstructive sleep apnea syndrome in this patient with history of excessive somnolence and nonrestorative sleep who has comorbidities of diabetes and congestive heart failure. For testing, a nocturnal T3 respiratory monitoring device was used. Continuous record was made of pulse, oxygen saturation, airflow, chest and abdominal strain and body position. 9 hours and 59 minutes of data were reviewed. There were 8 hours and 53 minutes marked as time in bed. During the interval marked time in bed, there were 272 respiratory events identified of 10 seconds in duration or greater for a respiratory event index of 30.6. The events were primarily obstructive, 33 mixed and central apneas were however seen. Baseline pulse rate 67 beats per minute, pulse rate ranged 55-81. Baseline saturation was 91% and saturations fell to 83%. Testing was performed in both the supine and nonsupine positions. IMPRESSION: Abnormal home sleep testing with repetitive respiratory events and oxygen desaturations to 83% with a respiratory event index of 30.6 is consistent with the obstructive sleep apnea syndrome. RECOMMENDATION: The patient should be encouraged to undergo formal sleep evaluation and in-laboratory pressure titration.
== END ==
LOC: M SLEEP HO 11:08
PROVIDERS: ATTEND Internal Medicine Pulmonary Disease
DX: R40.0 Somnolence (principal); M85.9 Disorder of bone density and structure, unspecified; E03.9 Hypothyroidism, unspecified
CPT/HCPCS: 80053; 80061; 82306; 83036; 84439; 84443; 84481; G0399

== ENCOUNTER → 2019-02-05 | Outpatient (REF) | payer MEDICARE, MEDICAID ==
[~2019-02-05] MED LIST changes: +CYAN100049 PO; -VITA10002 PO
[2019-02-05 13:25] LABS: HEMATOCRIT 38.5 % (36.0-47.0); HEMOGLOBIN 11.7 g/dl (12.0-15.5); MEAN CORPUSCULAR HGB CONC 30.4 g/dl (32.0-36.5); MEAN CORPUSCULAR VOLUME 95.3 fl (80.0-96.0); PLATELET COUNT, AUTOMATED 219 10^3/uL (150-450); RED BLOOD COUNT 4.04 10^6/uL (4.00-5.40); WHITE BLOOD COUNT 7.8 10^3/uL (4.0-10.0)
[2019-02-05 13:40] LABS: ALBUMIN 3.4 GM/DL (3.2-5.2); BILIRUBIN,TOTAL 0.3 MG/DL (0.2-1.0); CALCIUM LEVEL 9.7 MG/DL (8.8-10.2); CHOLESTEROL RISK RATIO 2.558 (<5); CREATININE FOR GFR 1.36 MG/DL (0.55-1.30); FREE T4 1.11 NG/DL (0.76-1.46); GLOMERULAR FILTRATION RATE 40.2 (>39); POTASSIUM SERUM 4.9 MEQ/L (3.5-5.1); THYROID STIMULATING HORMONE 3.19 uIU/ML (0.358-3.740); TOTAL PROTEIN 6.8 GM/DL (6.4-8.2)
[2019-02-05 13:52] LABS: HEMOGLOBIN A1c 7.2 %
[2019-02-05 14:04] LABS: TOTAL 25(OH) VITAMIN D 24.7 NG/ML (30.0-100.0)
[2019-02-05 14:08] LABS: MALB URINE SIEMENS 77.5 MG/L; MAU/CREAT RATIO 54.1 MCG/MG (0.0-30.0)
== END ==
LOC: M LABDRWAD 12:35
PROVIDERS: ATTEND Family Medicine
DX: E03.9 Hypothyroidism, unspecified (principal); M85.9 Disorder of bone density and structure, unspecified; E11.9 Type 2 diabetes mellitus without complications

== ENCOUNTER → 2019-02-26 | Outpatient (CLI) | payer MEDICARE, MEDICAID ==
--- NOTE | 2019-02-26 13:35 | REPMRS ---
Patient History The patient states she has not had a clinical breast exam in over a year. No Hormone Replacement Therapy 3D TOMOSYNTHESIS WAS PERFORMED. The [facility] lifetime risk for breast cancer is 3.0%. Digital Woman Screen Mammo: February 26, 2019 - Exam #: [id number] Bilateral CC and MLO view(s) were taken. Technologist: Ciarra Olmstead, Technologist Prior study comparison: December 21, 2017, bilateral digital woman screen mammo performed at [facility]. July 02, 2016, digital woman screen mammo performed at [facility] [employer] [facility]. FINDINGS: There are scattered fibroglandular densities. There has been no change in the appearance of the mammogram from the prior studies. There is a mild amount of residual fibroglandular tissue which is fairly symmetric. There is no interval development of dominant mass, architectural distortion, or clustered microcalcification suggestive of malignancy. Assessment: BI-RADS/ACR category 1 mammogram. Negative Mammogram. Recommendation Routine screening mammogram in 1 year (for women over age 40). This mammogram was interpreted with the aid of an FDA-approved computer-aided dectection system. Electronically Signed By: Tyler Retana MD 02/26/19 [id number]
== END ==
LOC: M WHC 11:22
PROVIDERS: ATTEND Family Medicine
DX: Z12.31 Encounter for screening mammogram for malignant neoplasm of breast (principal)

== ENCOUNTER → 2020-01-18 | Outpatient (CLI) | payer MEDICARE, MEDICAID ==
[2020-01-18 14:04] LABS: HEMATOCRIT 38.9 % (36.0-47.0); HEMOGLOBIN 11.5 g/dl (12.0-15.5); MEAN CORPUSCULAR HGB CONC 29.6 g/dl (32.0-36.5); MEAN CORPUSCULAR VOLUME 98.2 fl (80.0-96.0); PLATELET COUNT, AUTOMATED 238 10^3/uL (150-450); RED BLOOD COUNT 3.96 10^6/uL (4.00-5.40); WHITE BLOOD COUNT 7.4 10^3/uL (4.0-10.0)
[2020-01-18 14:28] LABS: HEMOGLOBIN A1c 7.1 %
[2020-01-18 14:45] LABS: ALBUMIN 3.2 GM/DL (3.2-5.2); BILIRUBIN,TOTAL 0.1 MG/DL (0.2-1.0); CALCIUM LEVEL 9.6 MG/DL (8.8-10.2); CHOLESTEROL RISK RATIO 2.947 (<5); CREATININE FOR GFR 1.21 MG/DL (0.55-1.30); FREE T4 1.07 NG/DL (0.76-1.46); GLOMERULAR FILTRATION RATE 45.9 (>39); POTASSIUM SERUM 5.2 MEQ/L (3.5-5.1); THYROID STIMULATING HORMONE 2.8 uIU/ML (0.358-3.740); TOTAL 25(OH) VITAMIN D 41.3 NG/ML (30.0-100.0); TOTAL PROTEIN 6.7 GM/DL (6.4-8.2)
== END ==
LOC: M PLALAB 08:56
PROVIDERS: ATTEND Family Medicine
DX: E11.9 Type 2 diabetes mellitus without complications (principal); E78.5 Hyperlipidemia, unspecified; M85.9 Disorder of bone density and structure, unspecified; E03.9 Hypothyroidism, unspecified

== ENCOUNTER → 2020-02-22 | Outpatient (CLI) | payer MEDICARE, MEDICAID ==
--- NOTE | 2020-02-22 14:45 | REPMRS ---
Patient History The patient states she has not had a clinical breast exam in over a year. No Hormone Replacement Therapy Digital Woman Screen Mammo: February 22, 2020 - Exam #: [id number] Bilateral CC and MLO view(s) were taken. Technologist: Nikkie Emmanuel, Technologist Prior study comparison: February 26, 2019, bilateral digital woman screen mammo performed at [facility]. December 21, 2017, bilateral digital woman screen mammo performed at [facility]. July 02, 2016, digital woman screen mammo performed at [facility]. FINDINGS: There are scattered fibroglandular densities. The [employer] volumetric breast density category is:B. There has been no change in the appearance of the mammogram from the prior studies. There is a mild amount of scattered fibroglandular density which is fairly symmetric. There is no interval development of dominant mass, architectural distortion, or grouped microcalcification suggestive of malignancy. 3-D tomosynthesis shows no additional findings. Assessment: BI-RADS/ACR category 1 mammogram. Negative Mammogram. Recommendation Routine screening mammogram of both breasts in 1 year (for women over age 40). This patient's Lifetime Breast Cancer Risk is estimated at 2.7 %. This mammogram was interpreted with the aid of an FDA-approved computer-aided dectection system. Electronically Signed By: Yong Coyle MD 02/22/20 [id number]
== END ==
LOC: M WHC 12:47
PROVIDERS: ATTEND Family Medicine
DX: Z12.31 Encounter for screening mammogram for malignant neoplasm of breast (principal)

== ENCOUNTER → 2020-08-01 | Outpatient (CLI) | payer MEDICARE, MEDICAID ==
--- NOTE | 2020-08-01 10:24 | REP ---
INDICATION: PAIN IN RIGHT KNEE COMPARISON: 11/11/2012 TECHNIQUE: Five views FINDINGS: There is mild to moderate tricompartmental marginal osteophytosis which has increased from the prior exam. There is medial compartmental and patellofemoral joint space narrowing also increased. There is no acute fracture, dislocation, or subluxation. IMPRESSION: Chronic changes as described above. <Electronically signed by Shmuel Fortune > 08/01/20 1021
== END ==
LOC: M ADAMS 09:48
PROVIDERS: ATTEND Family Medicine
DX: M25.561 Pain in right knee (principal)